=== PATIENT | female | born 1980 | race Caucasian/White ===

== ENCOUNTER 2022-12-20 14:05 | Emergency (ER) | payer OTHER, SELFPAY ==
[2022-12-20 14:17] VITALS: BP 163/83; PULSE 103; RESP 16; TEMP 36.8; O2SAT 100
[2022-12-20] MEDS: DEXAMETHASONE 2 MG TABLET 10 MG PO (15:15)
[2022-12-20] MEDS: METOCLOPRAMIDE HCL INJ 10 MG/2 ML VIAL IM (15:19)
[2022-12-20] MEDS: diphenhydrAMINE HCl CAP 25 MG CAPSULE PO (15:19)
--- NOTE | 2022-12-20 16:16 | ED.HA ---
HPI - Headache General Chief Complaint: Headache Stated Complaint: sinus migraine x 3 days Time Seen by Provider: 12/20/22 15:05 History of Present Illness HPI Narrative: Patient with history of sinusitis already on Flonase and Zyrtec presents here with sinus migraine, she has had this in the past, has been ongoing for a few days, slow in onset, with some photophobia, no focal numbness or weakness. Related Data Home Medications Medication Instructions Recorded Confirmed Lasix 12/29/18 12/29/18 Pepcid AC 12/29/18 Wellbutrin 12/29/18 clonidine DAILY 12/29/18 sertraline 50 mg tablet (Zoloft) 50 mg PO DAILY 12/29/18 12/29/18 Allergies Allergy/AdvReac Type Severity Reaction Status Date / Time No Known Allergies Allergy Unknown Verified 12/20/22 15:09 Review of Systems Review of Systems: CONST: No fever. HEENT: Sinusitis C/V: No chest pain RESP: No cough GI: Nausea and vomiting : No dysuria. M/S: No joint pain. SKIN: No rash. NEURO: Headache PSYCH: [No depression] Exam Narrative: EXAMINATION OF ORGAN SYSTEMS/BODY AREAS: Constitutional: Vital signs per nursing GENERAL: Appears slightly uncomfortable HEAD: Normal with no signs of head trauma. EYES: EOMI, conjunctiva normal ENT: Slight tenderness to R frontal sinus LUNGS: Nonlabored breathing. HEART: [Regular rate and rhythm] ABD: [Soft], [nontender to palpation] EXT: Normal range of motion SKIN: [No rashes or lesions.] NEURO: [Alert and oriented x 3. No gross focal sensory or strength deficits.] Ambulating with normal gait, no facial asymmetry. PSYCH: Normal affect Course Vital Signs Vital signs: Vital Signs Temperature 98.2 F 12/20/22 14:17 Pulse Rate 103 H 12/20/22 14:17 Respiratory Rate 16 12/20/22 14:17 Blood Pressure 163/83 H 12/20/22 14:17 Pulse Oximetry 100 12/20/22 14:17 Oxygen Delivery Room Air 12/20/22 14:17 Temperature 98.2 F 12/20/22 14:17 Pulse Rate 103 H 12/20/22 14:17 Respiratory Rate 16 12/20/22 14:17 Blood Pressure 163/83 H 12/20/22 14:17 Pulse Oximetry 100 12/20/22 14:17 Oxygen Delivery Room Air 12/20/22 14:17 MDM - Headache MDM Narrative Medical decision making narrative: 42-year-old female presents to the emergency department for sinus headache. Patient is hemodynamically stable. No focal neurological or cranial nerve deficits on exam. No meningeal signs. The headache was gradual in onset, it is not exertional and does not appear consistent with subarachnoid hemorrhage or intracranial bleeding. No trauma. Patient is given headache cocktail including Reglan, Benadryl, Toradol. On reevaluation, the patient feels slightly better; she still has a headache but her nausea is gone, I did offer further interventions she declined at this time. No neurological deficits. Patient is comfortable going home for outpatient follow-up with primary care physician and/or neurology and provided with strict return precautions, especially for worsening headaches, neck pain/stiffness, fever or weakness, numbness/tingling or persistent vomiting. I did provide ENT follow-up, she is already on Flonase and Augmentin, given the extent of her symptoms I will start her on antibiotics Discharge Plan Discharge Clinical Impression: Sinusitis, Migraine Patient Disposition: Home, Self-Care Condition: Improved Instructions: Antibiotic Form, Sinusitis (ED), Acute Headache (ED) Additional Instructions: Please follow up with your doctor and with ENT; you can always return for any further issues. Prescriptions: New amoxicillin-pot clavulanate 875-125 mg tablet 1 tablet PO Q12H Qty: 10 0RF ondansetron 4 mg tablet,disintegrating 4 mg PO Q8H PRN (Reason: nausea and vomiting) Qty: 10 0RF No Action Wellbutrin 300 MG tablet Pepcid AC Lasix 10 MG tablet clonidine 0.1 MG tablet DAILY sertraline [Zoloft] 50 mg Tablet 50 mg PO DA
[2022-12-20] MEDS: KETOROLAC 30 MG/ML VIAL (*BKC) IM (16:21)
== END 2022-12-20 16:47 | disposition home or self-care (01) ==
PROVIDERS: Emergency Provider Emergency Medicine; PCP Nurse Practitioner
DX: G43.909 Migraine, unspecified, not intractable, without status migrainosus (principal); J32.9 Chronic sinusitis, unspecified
CPT/HCPCS: 96372; 99284; A9270; J1885; J2765; J8540

== ENCOUNTER 2024-06-03 10:55 | Emergency (ER) | payer BC, SELFPAY ==
--- NOTE | ~2024-06-03 | XR_ITS ---
CHEST RADIOGRAPH CLINICAL HISTORY: Shortness of breath . COMPARISON: 10/09/2017 TECHNIQUE: Single portable view of the chest. FINDINGS The cardiomediastinal silhouette is unremarkable. The lungs are clear. Visualized osseous structures and soft tissues are unremarkable. IMPRESSION: No focal infiltrate or effusion. Reviewed, dictated and finalized at location A.
[2024-06-03 11:07] VITALS: BP 153/101; PULSE 83; RESP 18; TEMP 36.4; O2SAT 99
--- NOTE | 2024-06-03 11:40 | ED.ASTHMA ---
HPI - Asthma General Chief Complaint: Asthma Stated Complaint: ?asthma attack Time Seen by Provider: 06/03/24 11:19 Source: patient and family Mode of arrival: ambulatory Limitations: no limitations History of Present Illness HPI Narrative: 43 years old white female with history of hypertension, asthma. Does not smoke or drink or use drugs. Came to the ED with an episodes of hot flashes, feeling like going to pass out, restlessness, jittery feeling inside, shaking outside, trouble breathing, lightheadedness with shortness of breath started yesterday at work lasted for maximum 20 minutes then resolved. Patient reports a lot of stress lately. Currently patient is asymptomatic except slight headache and feeling off. Currently patient denies any fever, chills, nausea, vomiting, chest pain, shortness of breath. Related Data Home Medications ?Medication ?Instructions ?Recorded ?Confirmed ?Last Taken ?Type Lasix 12/29/18 12/29/18 Unknown History Pepcid AC 12/29/18 Unknown History Wellbutrin 12/29/18 Unknown History clonidine DAILY 12/29/18 Unknown History sertraline 50 mg tablet (Zoloft) 50 mg PO DAILY 12/29/18 12/29/18 Unknown History Allergies Allergy/AdvReac Type Severity Reaction Status Date / Time No Known Allergies Allergy Unknown Verified 06/03/24 10:56 Review of Systems Review of Systems: All systems reviewed & are unremarkable except as noted in HPI and below Exam Narrative: General appearance: Well-developed, well-nourished, anxious, restless Skin: Normal color Head: Normocephalic, nontraumatic Eyes: Clear conjunctiva ENT: Oropharynx normal, ears normal, nose normal Neck: Supple, nontender Chest and respiratory: Airway patent, no respiratory distress, no accessory muscle use Heart: Regular rate/rhythm Abdomen: Soft, nontender, no organomegaly, quiet bowel sounds Vascular: Normal peripheral pulses, normal capillary refill. Musculoskeletal: Normal range of motion, nontender back Neurologic: Alert and oriented ?3, [employer] is normal as tested, no gross motor deficit Course Vital Signs Vital signs: Vital Signs Temperature 36.4 C 06/03/24 11:07 Pulse Rate 83 06/03/24 11:07 Respiratory Rate 18 06/03/24 11:07 Blood Pressure 153/101 H 06/03/24 11:07 Pulse Oximetry 99 06/03/24 11:07 Oxygen Delivery Room Air 06/03/24 11:07 Temperature 36.4 C 06/03/24 11:07 Pulse Rate 74 06/03/24 11:41 Respiratory Rate 17 06/03/24 11:41 Blood Pressure 154/100 H 06/03/24 11:41 Pulse Oximetry 100 06/03/24 12:44 Oxygen Delivery Room Air 06/03/24 12:44 MDM - Asthma MDM Narrative Medical decision making narrative: Patient presents with anxiety like symptoms Vital signs showing blood pressure 153/101 otherwise within normal limit Physical examination showing restless, anxious patient otherwise insignificant Differential diagnosis include anxiety like symptoms, urinary tract infection, dehydration, electrolyte imbalance Blood workup today includes CBC, CMP, TSH showed insignificant abnormalities Urinalysis showed EVIDENCE OF INFECTION Chest x-ray showed WITHIN NORMAL LIMIT EKG SHOWED NORMAL SINUS RHYTHM URINE DRUG SCREEN POSITIVE FOR MARIJUANA PATIENT TESTED POSITIVE FOR DIAGNOSIS , ANXIETY LIKE SYMPTOMS, MARIJUANA USE, URINARY TRACT INFECTION DISCHARGED ON AMOXICILLIN, FOLLOW-UP WITH OBGYN. THE PT WAS DISCHARGED TO HOME.THE PT,S CONDITION UPON DISCHARGE WAS FAIR,EDUCATION WAS PROVIDED TO THE PT IN REFERENCE TO THE FINAL IMPRESSION,DISCHARGE STUDY RESULTS,TREATMENT,PROGNOSIS AND NEED FOR FOLLOW UP . Differential Diagnosis Differential diagnosis: Likely other (As above) Medical Records Attestation: I reviewed the patient's medical records. Lab Data Attestation: I reviewed the patient's lab results. 06/03/24 12:31 06/03/24 12:31 Labs: Lab Results 06/03/24 06/03/24 06/03/24 Range/Units 12:24 12:28 12:31 WBC 4.5 (4.5-10.0) K/mm3 RBC 4.53 (4.2-5.4) M/mm3 Hgb 13.2 (12.0-15.0) g/dL Hct 41.9 (37.0-47.0) % MCV 92.5 (80-100) fl MCH 29.1 (26-34) pg MCHC 31.5 L (32-36) g/dl RDW 12.5 (11.5-14.5) % Plt Count 225 (150-375) k/mm3 MPV 10.3 (7.4-10.4) fl Immature Gran % (Auto) 0.2 (0-0.5) % Neut % (Auto) 45.7 (45.5-73.1) % Lymph % (Auto) 39.1 (18.3-44.2) % [place] % (Auto) 9.2 H (2.6-8.5) % Eos % (Auto) 4.9 H (0-4.4) % Baso % (Auto) 0.9 (0.2-1.2) % Lymph # (Auto) 1.75 (0.9-3.2) K/mm3 [place] # (Auto) 0.4 (0.1-0.6) K/mm3 Eos # (Auto) 0.2 (0-0.3) K/mm3 Baso # (Auto) 0.0 (0.0-0.1) K/mm3 Abs Immat Gran (auto) 0.01 (0.00-0.031) K/mm3 Absolute Neuts (auto) 2.0 (1.3-6.7) K/mm3 Absolute Nucleated RBC 0.000 (0.0-0.012) K/mm3 Nucleated RBC % 0.0 (0.0-0.2) % Sodium 140 (137-145) mmol/L Potassium 3.8 (3.4-5.0) mmol/L Chloride 105 (98-107) mmol/L Carbon Dioxide 22 (22-30) mmol/L Anion Gap 13 H (4-12) mmol/L BUN 18 H (7-17) mg/dL Creatinine 1.06 H (0.7-1.0) mg/dL Estim Creat Clear Calc 60 ml/min Estimated GFR 57 L (59 - ) Glucose 119 H (65-110) mg/dL Calcium 9.1 (8.4-10.2) mg/dL Total Bilirubin 0.7 (0.2-1.3) mg/dL AST 26 (14-36) U/L ALT 20 (6-35) U/L Alkaline Phosphatase 77 (38-126) U/L Troponin I Cancelled Total Protein (6.3-8.2) g/dL Albumin (3.5-5.1) g/dL TSH (0.465-4.680) uIU/mL Beta HCG, Quant mIU/ML Urine Color Yellow (Yellow) Urine Appearance Clear (Clear) Urine pH 5.5 (5.0-9.0) Ur Specific [place] 1.007 (1.001-1.035) Urine Protein Negative (Negative) mg/dL Urine Glucose (UA) Negative (Negative) mg/dL Urine Ketones Negative (Negative) mg/dL Ur Blood (Man) Negative (Negative) Urine Nitrate Negative (Negative) Urine Bilirubin Negative (Negative) Urine Urobilinogen 0.2 (<2.0) mg/dL Leukocyte Esterase Rfl 2+ H (Negative) SEGUN/UL Urine RBC 0-2 (0-2) /hpf Urine WBC 11-20 H (0-3) /hpf Ur Squamous Epith Cells None seen (Few) /hpf Urine Bacteria None seen /hpf Urine Casts 0-2 POC Urine HCG, Qual Positive (Negative) Urine Opiates Screen Negative (Negative) Urine Methadone Screen Negative (Negative) Ur Barbiturates Screen Negative (Negative) Ur Phencyclidine Scrn Negative (Negative) Ur Amphetamine Screen Negative (Negative) U Benzodiazepines Scrn Negative (Negative) Urine Cocaine Screen Negative (Negative) U Cannabinoids Screen Positive A (Negative) 06/03/24 Range/Units 12:31 WBC (4.5-10.0) K/mm3 RBC (4.2-5.4) M/mm3 Hgb (12.0-15.0) g/dL Hct (37.0-47.0) % MCV (80-100) fl MCH (26-34) pg MCHC (32-36) g/dl RDW (11.5-14.5) % Plt Count (150-375) k/mm3 MPV (7.4-10.4) fl Immature Gran % (Auto) (0-0.5) % Neut % (Auto) (45.5-73.1) % Lymph % (Auto) (18.3-44.2) % [place] % (Auto) (2.6-8.5) % Eos % (Auto) (0-4.4) % Baso % (Auto) (0.2-1.2) % Lymph # (Auto) (0.9-3.2) K/mm3 [place] # (Auto) (0.1-0.6) K/mm3 Eos # (Auto) (0-0.3) K/mm3 Baso # (Auto) (0.0-0.1) K/mm3 Abs Immat Gran (auto) (0.00-0.031) K/mm3 Absolute Neuts (auto) (1.3-6.7) K/mm3 Absolute Nucleated RBC (0.0-0.012) K/mm3 Nucleated RBC % (0.0-0.2) % Sodium (137-145) mmol/L Potassium (3.4-5.0) mmol/L Chloride (98-107) mmol/L Carbon Dioxide (22-30) mmol/L Anion Gap (4-12) mmol/L BUN (7-17) mg/dL Creatinine (0.7-1.0) mg/dL Estim Creat Clear Calc ml/min Estimated GFR (59 - ) Glucose (65-110) mg/dL Calcium (8.4-10.2) mg/dL Total Bilirubin (0.2-1.3) mg/dL AST (14-36) U/L ALT (6-35) U/L Alkaline Phosphatase (38-126) U/L Troponin I < 0.012 Total Protein 8.0 (6.3-8.2) g/dL Albumin 4.7 (3.5-5.1) g/dL TSH 0.713 (0.465-4.680) uIU/mL Beta HCG, Quant 6.41 mIU/ML Urine Color (Yellow) Urine Appearance (Clear) Urine pH (5.0-9.0) Ur Specific [place] (1.001-1.035) Urine Protein (Negative) mg/dL Urine Glucose (UA) (Negative) mg/dL Urine Ketones (Negative) mg/dL Ur Blood (Man) (Negative) Urine Nitrate (Negative) Urine Bilirubin (Negative) Urine Urobilinogen (<2.0) mg/dL Leukocyte Esterase Rfl (Negative) SEGUN/UL Urine RBC (0-2) /hpf Urine WBC (0-3) /hpf Ur Squamous Epith Cells (Few) /hpf Urine Bacteria /hpf Urine Casts POC Urine HCG, Qual (Negative) Urine Opiates Screen (Negative) Urine Methadone Screen (Negative) Ur Barbiturates Screen (Negative) Ur Phencyclidine Scrn (Negative) Ur Amphetamine Screen (Negative) U Benzodiazepines Scrn (Negative) Urine Cocaine Screen (Negative) U Cannabinoids Screen (Negative) Imaging Data Radiologist's impression: Impressions Chest X-Ray 06/03/24 13:15 IMPRESSION: No focal infiltrate or effusion. ECG Data EKG #1: Attestation: I personally reviewed and interpreted this ECG as follows: ECG completion date: 06/03/24 ECG completion time: 13:35 Interpretation: NORMAL SINUS RHYTHM AT 61 BEATS PER MINUTE, BORDERLINE ST T-WAVE ABNORMALITY, BORDERLINE EKG, NO PREVIOUS EKG AVAILABLE FOR COMPARISON Critical Care Time Critical Care Time Critical Care Time: No Discharge Plan Discharge Clinical Impression: , Anxiety-like symptoms, Urinary tract infection Patient Disposition: Home Condition: Stable Instructions: Antibiotic Form, (ED), Urinary Tract Infection in Women (ED) Additional Instructions: RETURN IF SYMPTOMS ARE WORSENING , CALL YOUR FAMILY PHYSICIAN FOR APPOINTMENT, TAKE TYLENOL NEEDED FOR ACHES AND PAIN, CONTINUE HOME MEDICATIONS. Patient Language: Thai Prescriptions: New amoxicillin 875 mg tablet 875 mg PO Q12H Qty: 20 0RF No Action Wellbutrin 300 MG tablet Pepcid AC Lasix 10 MG tablet clonidine 0.1 MG tablet DAILY sertraline [Zoloft] 50 mg Tablet 50 mg PO DAILY prednisone 50 mg tablet 50 mg PO DAILY Qty: 5 0RF fluticasone propionate 50 mcg/actuation spray,suspension 2 spray NASAL DAILY PRN (Reason: nasal congestion) Qty: 15.8 0RF Rx Instructions: administer into each nostril amoxicillin-pot clavulanate 875-125 mg tablet 1 tablet PO Q12H Qty: 10 0RF ondansetron 4 mg tablet,disintegrating 4 mg PO Q8H PRN (Reason: nausea and vomiting) Qty: 10 0RF Follow-up/Referrals: Matteo Bartlett MD [Primary Care Provider] -
[2024-06-03 11:41] VITALS: BP 154/100; PULSE 74; RESP 17; O2SAT 100
--- NOTE | 2024-06-03 12:08 | ECG_ITS ---
Test Date: 2024-06-03 12:42:19 Measurements Intervals [place] Rate: 61 P: 26 RI: 153 QRS: 39 QRSD: 102 T: 139 QT: 426 QTc: 432 Interpretive Statements SINUS RHYTHM BORDERLINE ST-T WAVE ABNORMALITY- DIFFUSE LEADS BASELINE ARTIFACT- I, II, AVR, V1-V2 BORDERLINE ECG No previous ECG available for comparison Electronically Signed On 06-03-2024 13:34:44 CDT by Deepak Meeks D.O.
[2024-06-03] MEDS: LORazepam (*CRX) 1 MG TABLET PO (12:24)
[2024-06-03 12:31] LABS: BEDSIDEPREGUCG Positive (Negative)
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
--- OUTSIDE RECORDS SUMMARY | 2024-06-03 12:34 | XMS_ITS | Clinical Summary ---
Author Organization [facility] Address [address] [place] [id number] Care Team Providers Care Boiler Testing Technician Name Role Phone Karin Bird RN Unavailable Unavailable Vera Corrales DO Primary Care Provider [phone] Source Comments [facility],non-owned Affiliates and Associated Physician Practices is amultiple site organization consisting of ambulatory clinics and hospital sitesin [place], [place], [place] and [place]. This disclosure is being madepursuant to the Care Everywhere program and may not contain all information available regarding this patient. Last updated 17.[facility] Allergies No known active allergies Medications * Be aware that medications may not be up to date on this document. Alwaysverify current medications with the patient. Medication Sig Dispensed Refills Start Date End Date Status aspirin (ASPIRIN) 81 MG chew tablet Take 1 tablet by mouth once daily 30 tablet 06/23/2017 Active sertraline (ZOLOFT) 50 MG tablet Take 1 tablet by mouth once daily 30 tablet 06/23/2017 Active traZODone (DESYREL) 100 MG tablet Take 1 tablet by mouth at bedtime 30 tablet 07/31/2018 Active cloNIDine (CATAPRES) 0.1 MG tablet Take 1 tablet by mouth 2 times daily 60 tablet 07/31/2018 Active carvedilol (COREG) 12.5 MG tablet Take 1 tablet by mouth 2 times daily with morning and evening meal 60 tablet 07/31/2018 Active famotidine (PEPCID) 20 MG tablet Take 1 tablet by mouth once daily 30 tablet 07/31/2018 Active Active Problems Patient Care Coordination No te Formatting of this note migh t be different from the original. All labs from Dr Stubbs are out of date from prior . Need new labs and GCT at next appt. 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 Supratherapeutic INR 06/20/2017 Amphetamine-induced psychotic disorder 8 Hallucinations 05/29/2017 Hypokalemia 05/29/2017 Paranoia 05/29/2017 Aggression 05/29/2017 Chest pain 05/29/2017 LV (left ventricular) mural thrombus without NM 05/27/2017 Cerebrovascular accident (CV A) due to thrombosis of precerebral artery 05/27/2017 Swelling of limb 05/03/2017 SOB (shortness of breath) 05/03/2017 Elevated troponin 05/03/2017 Bilateral leg edema 05/03/2017 Hypertensive urgency 05/03/2017 Acute intractable headache 05/03/2017 Acute exacerbation of CHF (congestive heart fail ure) 09/18/2014 NSTEMI (non-ST elevated myocardial infarction) 0 09/18/2014 Bronchitis, acute 09/18/2014 Breast nodule 09/18/2014 CHF (congestive heart failure) 11/11/2012 Overview (11/11/2012): Echocardiogram from admission to [facility] in February shows severe LV dysfunction with an ejection fraction 28-32%. Dilated left atrium, mitral valve thickening, aortic valve thickening. She was started on Lasix and lisinopril and ASA at that time. H/O gestational diabetes in prior , currently 10/29/2012 H/O: stroke 10/29/2012 Overview (11/11/2012): March 08, 2012, while on ortho-evra patch Patient presented for right sided arm and leg weakness, mental status changes on 03/08/12. The MRI showed multiple multifocal acute cardiovascular accidents . MARVIN showed no evidence of thrombus or PFO. LE dopplers were negative. The likely cause was determined to be vasoconstriction due to amphetamine usage. The patient denied all drug usage although did admit to Sudafed. She was discharged on Plavix. Tubal ligation evaluation 10/29/2012 Overview (10/29/2012): Desires tubal If desires CS, wants tubal during CS History of Cervical insufficiency in , antepartum 10/28/2012 Overview (10/29/2012): Cerclage in G5 and G7 History of pre-eclampsia in prior , currently 10/28/2012 Overview (10/29/2012): In G9, not induced. Received magnesium prior to delivery and afterwards Tobacco abuse in 10/28/2012 Supervision of high-risk with grand mu ltiparity 10/20/2012 Overview (10/28/2012): BEVERLY from Dr. Stubbs for PTL/cervical insufficiency, h/o preeclampsia, PTD PNL drawn but results not included in fax from Dr. Stubbs Request records History of gestational diabetes mellitus 013 Resolved Problems Problem Noted Date Diagnosed Date Resolved Date Hypertension 12/26/2010 10/20/2012 GDM (gestational diabetes mellitus) 12/26/2010 09/26/2012 Overview (12/26/2010): GCT 163 before receiving steroids Supervision of high-risk 12/25/2010 10/20/2012 Overview (12/25/2010): History of recurrent 2nd trimester losses Hx of preeclampsia, prior pr egnancy, currently 12/25/2010 10/20/2012 Overview (12/25/2010): In G7, not induced. Received magnesium prior to delivery and afterwards care insufficient 12/25/2010 0 09/26/2012 Overview (12/25/2010): No visits. Presented to hospital at 34 weeks gestation after having high blood pressure in the [facility] office. States her insurance wouldn't go through so she couldn't see a doctor history of Cervical insuffic iency in , antepartum 12/25/2010 10/20/2012 Overview (12/25/2010): cerclage x2 in G6 and 7 Immunizations Name Administration Dates Next Due INFLUENZA VACCINE, QUADR. (F LUZONE; FLULAVAL; FLUARIX; AFLURIA QUADRIVALENT; 6MO+), 0.5 ML (IIV4) 11/17/2016 Family History Medical History Relation Name Comments Depression Father Drug Abuse Father Heart Failure Maternal Grandmother Hypertension Maternal Grandmother Stroke Maternal Grandmother Alcohol abuse Sister 1 Depression Sister 1 Drug Abuse Sister 1 Alcohol abuse Sister 2 Drug Abuse Sister 2 Relation Name Status Comments Father Maternal Grandmother Sister 1 Sister 2 Social History Tobacco Use Types Packs/Day Years Used Date Smoking Tobacco: Former Cigarettes 0.5 15 0 07/23/2003 - 07/22/2018 Smokeless Tobacco: Never Tobacco Cessation:Counseling Given: Yes Comments:quit 6 days ago July 24, 2018 Alcohol Use Standard Drinks/Week Comments No 0 (1 standard drink = 0.6 oz pur e alcohol) Sex and Gender Information Value Date Recorded Sex Assigned at Not on file Gender Identity Female 10/08/2017 4:05 PM CDT Sexual Orientation Not on file Last Filed Vital Signs Vital Sign Reading Time Taken Comments Blood Pressure 119/81 07/31/2018 12:46 PM CDT Pulse 66 07/31/2018 12:46 PM CDT Temperature 36.6 C (97.8 F) 07/31/2018 8:20 AM CDT 97.8 Respiratory Rate 16 07/31/2018 8:20 AM CDT Oxygen Saturation 98% 07/31/2018 12: 46 PM CDT Inhaled Oxygen Concentration - - Weight 108.6 kg (239 lb 6.4 oz) 07/29/2018 4:22 AM CDT Height 160 cm (5' 3 ) 07/29/2018 4:22 AM CDT Body Mass Index 42.41 07/29/2018 4:22 AM CDT Plan of Treatment Health Maintenance Due Date Last Done Comments MAMMOGRAM 1980 PAP SMEAR 1980 DTAP/TDAP/TD VACCINES (1 - Tdap) 11/23/1999 HEPATITIS B VACCINE (1 of 3 - 19+ 3-dose series) 11/23/1999 LIPID TESTING 05/06/2022 05/06/2017, 10/27, 09/19/2014, Additional history exists COVID-19 VACCINE (2023- season) 2023 DEPRESSION SCREENING 02/26/2024 INFLUENZA VACCINE (Season Ended) 2024 11/17/2016 ZOSTER VACCINE (1 of 2) 2030 HIV SCREENING Completed 01/08/2013, 12/25/2010 HEPATITIS C SCREENING Completed 11/16/2016 HIB VACCINE Aged Out No longer eligi ble based on patient's age to complete this topic HPV VACCINE Aged Out No longer eligi ble based on patient's age to complete this topic MENINGOCOCCAL (Group B) VACCINE SHARED DECISION-MAKING Aged Out No longer eligible based on patient's age to complete this topic MENINGOCOCCAL GROUPS A/C/Y/W VACCINE Aged Out No longer eligible based on patient's age to complete this topic PNEUMOCOCCAL VACCINE Aged Out No long er eligible based on patient's age to complete this topic Procedures Procedure Name Priority Date/Time Associated Diagnosis Comments LIPID PROFILE AM Draw 05/06/2017 4:20 AM CDT HEPATITIS SCREEN ACUTE Routine 11/16/2016 10:18 AM CDT HIV-1 HIV-2 ANTIBODY Add on 01/08/2013 3:50 PM BRYOLOGIST from Last 3 Months or Most Recently Relevant to Health Maintenance Results * (ABNORMAL) LIPID PROFILE (05/06/2017 4:20 AM CDT) Cholesterol 76 <200 mg/dL 05/06/2017 5:41 AM CDT [facility] Triglycerides 74 <150 mg/dL 05/06/2017 5:41 AM CDT [facility] HDL Cholesterol 21(L) >40 mg/dL 8 5:41 AM CDT [facility] LDL Calculated 40 <130 mg/dL 05/06/2017 5:41 AM CDT [facility] VLDL Calculated 15 <=30 mg/dL 8 5:41 AM CDT [facility] Chol HDL Ratio 3.6 <4.5 05/06/2017 5:41 AM CDT [facility] LDL/HDL Ratio 1.9 <5.0 05/06/2017 5:41 AM CDT [facility] Blood BLOOD SPECIMEN / Unknown Venipuncture / Unknown 05/06/2017 4:20 AM CDT 05/06/2017 5:02 AM CDT Naveen Kearns MD LAB - CHEMISTRY [facility] [address] [place] [address] * HEPATITIS SCREEN ACUTE (11/16/2016 10:18 AM CDT) Pathologist [facility] HAV Antibody IgM Non Reactive Non Reactive 11/16/2016 3:03 PM CDT [facility] HBsAg Non Reactive Non Reactive 11/16/2016 3:03 PM CDT [facility] HBc Antibody IgM Non Reactive Non Reactive 11/16/2016 3:03 PM CDT [facility] HCV Antibody Screen Non Reactive Non Reactive 11/16/2016 3:03 PM CDT [facility] HCV S/C Ratio 0.16 0.00 - 0.79 11/16/2016 3:03 PM CDT [facility] Comment: Qvqeis-ov-wxzjoz ratio (S/CO) <0.80: Non Reactive Blood BLOOD SPECIMEN / Unknown Venipuncture / Unknown 11/16/2016 10:18 AM CDT 11/16/2016 10:26 AM CDT Narrative [facility] - 11/16/2016 3:03 PM CDT Non Reactive - Antibodies to Hepatitis C virus (HCV) were not detected, result does not exclude early acute HCV infection. Non Reactive - Antibodies to Hepatitis C virus (HCV) were not detected, result does not exclude early acute HCV infection. Cuba Vaca MD LAB - CHEMISTRY [facility] Performing Organization Address City/[facility]/ZIP Co de Phone Number [facility] [address] [place] [address] * HIV-1 HIV-2 ANTIBODY (01/08/2013 3:50 PM BRYOLOGIST) Pathologist [facility] HIV-1/HIV-2 Non Reactive Non Reactive 3 1:56 PM BRYOLOGIST [facility] Blood BLOOD SPECIMEN / Unknown 01/08/2013 3:50 PM BRYOLOGIST 01/09/2013 12:38 PM BRYOLOGIST Lillie Roland MD LAB - CHEMISTRY O RDERABLES [facility] [address] [place] [address] from Last 3 Months or Most Recently Relevant to Health Maintenance Advance Directives * Full Code (Latest Code Status on File) Date Activated Date Inactivated Comments 07/29/2018 3:05 AM 07/31/2018 2:40 PM * Full Code Date Activated Date Inactivated Comments 08/08/2017 12:39 PM 08/08/2017 4:48 PM * Full Code Date Activated Date Inactivated Comments 06/20/2017 2:53 AM 06/23/2017 3:36 PM * Full Code Date Activated Date Inactivated Comments 05/29/2017 10:15 PM 05/31/2017 1:48 PM * Full Code Date Activated Date Inactivated Comments 05/29/2017 10:13 PM 05/29/2017 10:15 PM Care Teams Boiler Testing Technician Relationship Specialty Start Date End Date Vera Corrales DO [address] [place] [address] [place] [address] PCP - General 08/11/18 Karin Bird RN Registered Nurse 11/16/16
--- OUTSIDE RECORDS SUMMARY | 2024-06-03 12:34 | XMS_ITS ---
Author Organization [facility] Address [address] [place] [address] Care Team Providers Care Health Physicist Name Role Phone Matteo Bartlett Primary Care Provider [phone] [place] [phone] Social History Sex Assigned At : Social History Observation Description Sex Assigned At Female Encounters Encounter Location Date Provider Diagnosis [address] [place] [address] 06/03/2024 Matteo Bartlett Plan Of Treatment No Information Progress Notes * ITZELNancy Mueller LDOB: 1 (43 yo F)Acc No.[id number]:06/03/2024 UNLOCKED PROGRESS NOTE Patient: Nancy EVERETT :1980 A ge:43 Y S ex:Female Address:[facility] [address], [place], * * Date:
--- OUTSIDE RECORDS SUMMARY | 2024-06-03 12:34 | XMS_ITS | Encounter Summary ---
Author Organization [facility] Address [address] [place] [id number] Care Team Providers Care Rail Car Repair Carman Name Role Phone Delroy Chandler MD Primary Care Provider [phone] None, Provider Primary Care Provider Unavaila ble Encounter Details Date Type Department Care Team (Late st Contact Info) Description 12/29/2016 [place] [address] , Generic ConversionMD Social History Tobacco Use Types Packs/Day Years Used Date Smoking Tobacco: Never Assessed Comments Unknown Sex and Gender Information Value Date Recorded Sex Assigned at Not on file Legal Sex Female 5:00 PM CDT Gender Identity Not on file Sexual Orientation Not on file documented as of this encounter Plan of Treatment Not on file documented as of this encounter Visit Diagnoses Not on filedocumented in this encounter Care Teams Rail Car Repair Carman Relationship Specialty Start Date End Date Delroy Chandler MD PCP - General 03/08/12 03/14/19 None, ProviderMD PCP - General 03/15/19 documented as of this encounter
--- OUTSIDE RECORDS SUMMARY | 2024-06-03 12:34 | XMS_ITS ---
Author Organization [facility] Address [address] [place] [address] Care Team Providers Care Telecine Operator Name Role Phone Matteo Bartlett Primary Care Provider [phone] [place] Unavailable [phone] Allergies No Known Allergies REASON FOR VISIT 3 Month Psych F/U & Med Refill Medications Medication SIG (Take, Route, Frequency, Duration) Notes Start Date End Date Status Famotidine 40 MG TAKE 1 TABLET BY ADRI EVERY DAY AT BEDTIME for 90 days Active Mupirocin 2 % 1 application to bot h nostrils Externally Twice a day for 5 days 12/13/2023 Active Mirtazapine 45 MG 1 tablet at bedtime Orally Once a day for 90 days Active Topamax 100 MG 1 tablet Orally Twic e a day for 90 days Active cloNIDine HCl 0.2 MG 2 tablets at bedtim e Orally Once a day for 90 days Active cloNIDine HCl 0.1 1 tablet Orally Once a day for 30 Not-Taking Lisinopril 20 MG TAKE 1 TABLET BY ADRI EVERY DAY for 90 days Active Fluticasone Propionate 50 MCG/DOSE 1 spray in each nostril Nasally Once a day Active Carvedilol 12.5 MG as directed Orally t wice a day 06/27/2018 Not-Taking Atomoxetine HCl 25 MG 1 capsule in the m orning Orally once a day for 7 days 04/27/2024 Active Albuterol Sulfate HFA 108 (90 Base) MCG/ACT INHALE 2 PUFFS BY MOUTH EVERY 6 HOURS NEEDED for 25 Active Sudafed PE Sinus/Allergy OTC Active Ventolin HFA 90 MCG/ACT 2 puffs as neede d Inhalation every 6 hrs for 30 days Active Social History Tobacco Use: Social History Observation Description Date Details (start date - stop date) Never Smoker NA - NA Sex Assigned At : Social History Observation Description Sex Assigned At Female Tobacco Control (Standard) Question Answer Notes Tobacco [...] Psych inpt: none under care of psychiatrist: lissa only Vital Signs Weight 177.8 lbs 04/27/2024 Height 63 in 04/27/2024 BMI 31.49 kg/m2 04/27/2024 Blood pressure systolic 138 mm Hg 04/28/19 25 Blood pressure diastolic 84 mm Hg 025 Heart Rate 73 /min 04/27/2024 Oximetry 92 % 04/27/2024 Respiratory Rate 16 /min 04/27/2024 Encounters Encounter Location Date Provider Diagnosis [address] [address] 04/27/2024 [place] Bynum Depression F32.9 ; P TSD (post-traumatic stress disorder) F43.10 ; 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 04/27/2024 ADHD (attention deficit hyperactivity disorder) (ICD-10 - F90.9) 04/27/2024 Nutritional counseling (ICD-10 - Z71.3) Plan Of Treatment Medication Medication Name Sig Start Date Stop Date Notes Mirtazapine 45 MG 1 tablet at bedtime Orally Once a day for 90 days Topamax 100 MG 1 tablet Orally Twic e a day for 90 days cloNIDine HCl 0.2 MG 2 tablets at bedtim e Orally Once a day for 90 days Atomoxetine HCl 25 MG 1 capsule in the m orning Orally once a day for 7 days 04/27/2024 Treatment Notes Assessment Notes Amphetamine abuse in remission 7 years s shruthi. 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 She is having trouble switching gears and feels she is slower than she should be my ADD is all over the place. Ward about Vyvclarie and wonders is this would be good for her. Using clonidine. Now 7 years sober from amphetamine abuse and does not want to use a stimulant. Continues to parent three teens whose fathers are difficult to engage with. . Effectiveness of medications: S omewhat effective--only using clonidine 0.1 ER at [facility]. . Medication Adherence: R eports taking medications as prescribed. Sleep: A ppropriate sleep. Appetite t opamax is helpful for increased appetite with mirtazepine. Highly attached to mirtazepine. Depression (10 = most depressed) 0 /10 denies depression.? Anxiety (10 = most anxious) d enies. Anger/Irritability (10 is highest): d enies any altercations. Suicidal ideation: D enies suicidal ideation.. Homicidal ideation: D enies homicidal ideation.. Hallucinations D enies hallucinations. Medical concerns or hospitalizations? H [place] controlled with meds. . Therapy? N o. S creening: [place] Suicide Severity Rating Scale (LF) D o you want to initiate with S creener form 1 . Wish to be : Have you wished you were or wished you could go to sleep and not wake up? N o 2 . Suicidal Thoughts: Have you actually had any thoughts of killing yourself? N o 6 . Suicide Behavior Question: Have you ever done anything,started to do anything, or prepared to end your life? N o I nterpretation: L ow Risk P reventative Health and Wellness follow-up: ....... C SSRS Interpretation and Follow Up Plan: CSSRS Interpretation and Follow Up Plan C SSRS Screen documented using SF Y es R isk Disposition from L ow - No Follow Up Plan Required F ollow Up Plan N o Follow Up Plan required at this time. I nterim History: Emergency room visit N o. Was hospitalized N o. D epression Screening: PHQ-9 L ittle interest or pleasure in doing things?Not at all F eeling down, depressed, or hopeless N ot at all T rouble falling or staying asleep, or sleeping too much N ot at all F eeling tired or having little energy N ot at all P oor appetite or overeating N ot at all F eeling bad about yourself or that you are a failure, or have let yourself or your family down N ot at all T rouble concentrating on things, such as reading the newspaper or watching television S everal days M oving or speaking so slowly that other people could have noticed; or the opposite, being so fidgety or restless that you have been moving around a lot more than usual N ot at all T houghts that you would be better off or of hurting yourself in some way N ot at all T otal Score 1 I nterpretation M inimal Depression * ROS: P sych ROS: Constitutional D enies. E yes D enies. E ars/Nose/Mouth/Throat D enies. R espiratory D enies. A llergic/Immunologic D enies.?Cardiovascular D enies. G I D enies. M usculoskeletal D enies. N eurological D enies. * PSYCH ROS2: Elevated mood symptoms D enies. m ood swings D enies. T houghts of self harm D enies. D enies H omicidal thoughts. D ifficulty concentrating A dmits, w ith recent role change at [employer] job. . D enies A nxiety. Denies A uditory/visual hallucinations. D enies D elusions. D enies D epressed mood. D enies D ifficulty sleeping. D enies S uicidal thoughts. * Medical History: * Surgical History: c section 2010 and 2013Tubal ligation * Hospitalization/Major Diagno stic Procedure: h [facility] blood pressure and mental health 09/2017 * Family History: F ather: . M other: alive. S iblings: alive, diagnosed with Schizophrenia, unspecified. 2 son(s) , 2 daughter(s) . . father drug overdose. * Social History: P rimary Social History: L iving Arrangement L iving Arrangement: D ependent Living I s this a supportive environment? Y es Alcohol Use A lcohol Use Frequency: N ever Illicit Substance Usage I llicit Substance Usage: N o Employment Status E mployment Status: U nemployed T obacco Use: T obacco Control (Standard) T obacco use: N onsmoker M iscellaneous: M ethod of learning P referred method of learning: D emonstration k ids ages10, 12 plus 14 year old, 17 [...] Psych inpt: none under care of psychiatrist: lissa only. * Medications: T akingSudafed PE Sinus/Allergy , Notes to Pharmacist: OTCVentolin HFA 90 MCG/ACT Aerosol Solution 2 puffs as needed Inhalation every 6 hrs Albuterol Sulfate HFA 108 (90 Base) MCG/ACT Aerosol Solution INHALE 2 PUFFS BY MOUTH EVERY 6 HOURS NEEDED Fluticasone Propionate 50 MCG/DOSE Suspension 1 spray in each nostril Nasally Once a day Lisinopril 20 MG Tablet TAKE 1 TABLET BY MOUTH EVERY DAY Famotidine 40 MG Tablet TAKE 1 TABLET BY MOUTH EVERY DAY AT BEDTIME Mupirocin 2 % Ointment 1 application to both nostrils Externally Twice a day Mirtazapine 45 MG Tablet 1 tablet at bedtime Orally Once a day Topamax 100 MG Tablet 1 tablet Orally Twice a day cloNIDine HCl 0.2 MG Tablet 2 tablets at bedtime Orally Once a day Taking Sudafed PE Sinus/Allergy , Notes to Pharmacist: OTCTaking Ventolin HFA 90 MCG/ACT Aerosol Solution 2 puffs as needed Inhalation every 6 hrs Taking Albuterol Sulfate HFA 108 (90 Base) MCG/ACT Aerosol Solution INHALE 2 PUFFS BY MOUTH EVERY 6 HOURS NEEDED Taking Fluticasone Propionate 50 MCG/DOSE Suspension 1 spray in each nostril Nasally Once a day Taking Lisinopril 20 MG Tablet TAKE 1 TABLET BY MOUTH EVERY DAY Taking Famotidine 40 MG Tablet TAKE 1 TABLET BY MOUTH EVERY DAY AT BEDTIME Taking Mupirocin 2 % Ointment 1 application to both nostrils Externally Twice a day Taking Mirtazapine 45 MG Tablet 1 tablet at bedtime Orally Once a day Taking Topamax 100 MG Tablet 1 tablet Orally Twice a day Taking cloNIDine HCl 0.2 MG Tablet 2 tablets at bedtime Orally Once a day Not-TakingCarvedilol 12.5 MG Tablet as directed Orally twice a day cloNIDine HCl 0.1 Tablet 1 tablet Orally Once a day Not-Taking Carvedilol 12.5 MG Tablet as directed Orally twice a day Not-Taking cloNIDine HCl 0.1 Tablet 1 tablet Orally Once a day * Allergies: N .K.D.A.no[Allergies Verified] Objective: * Vitals: I nitials: ma, Wt:177.8, Ht: 63, BMI:31.49, BP:138/84, HR:73, Oxygen sat %:92, RR:16, LMP: n/a, Pain scale:0, PHQ9:1. * Examination: C QM Exceptions: Cervical Cancer Screening not performed R chapin P atient declined cervical screening M ental Status Exam: SENSORIUM AND COGNITION A lert , Oriented to Person , Oriented to Place , Oriented to Time , Oriented to Situation. ATTENTION AND CONCENTRATION N o deficits. APPEARANCE A ppears older than stated age, slight facial drooping on left side. No, Appropriate, Neatly dressed and groomed. ATTITUDE AND BEHAVIOR C ooperative , Receptive. MEMORY G rossly intact. AFFECT B road/Full , Congruent with reported mood. MOOD E uthymic. SPEECH QUANTITY A ppropriate. SPEECH QUALITY S pontaneous , Fluent , Appropriate volume, somewhat slurred. THOUGHT PROCESS C oherent and goal directed. THOUGHT CONTENT A ppropriate - WNL , Congruent with affect , No evidence of delusional content , No reports paranoia. SUICIDAL IDEATION D enies suicidal ideation , Denies self-harm activities. HOMICIDAL IDEATION D enies homicidal ideation. HALLUCINATIONS D enies auditory hallucinations , Denies visual hallucinations. INSIGHT , Fair. JUDGMENT , Fair. FUND OF KNOWLEDGE , Fair. ABILITY TO PARTICIPATE IN TREATMENT M oderate. WILLINGNESS TO PARTICIPATE IN TREATMENT M oderate. ? Assessment: * Assessment: 1. D epression - F32.9 (Primary) 2 . P TSD (post-traumatic stress disorder) - F43.10 3 . A mphetamine abuse in remission - F15.11 4 . A DHD (attention deficit hyperactivity disorder) - F90.9 5 . N utritional counseling - Z71.3 Plan: * Treatment: 2. A mphetamine abuse in remission Notes: 7 years sober. 3. A DHD (attention deficit hyperactivity disorder) Refill cloNIDine HCl Tablet, 0.2 MG, 2 tablets at bedtime, Orally, Once a day, 90 days, 180 Tablet, Refills 0; S tart Atomoxetine HCl Capsule, 25 MG, 1 capsule in the morning, Orally, once a day, 7 days, 7 Capsule. * Recommended Wellness and Pre vention Guidelines: * S tatus A lert L ast Done N ext Due A ction Taken N ONCOMPLIANT B reast cancer screening - 0 04/27/2024 - N ONCOMPLIANT C ervical cancer screening - 0 04/27/2024 - N ONCOMPLIANT H IV screening - 0 04/27/2024 - * Procedure Codes: 3 008F BODY MASS INDEX [id number] BODY MASS INDEX [id number] BODY MASS INDEX [id number] BODY MASS INDEX [id number] BODY MASS INDEX [id number] MEDICAL NUTRITION, INDIV, [id number] MEDICAL NUTRITION, INDIV, [id number] MEDICAL NUTRITION, INDIV, [id number] MEDICAL NUTRITION, INDIV, [id number] MEDICAL NUTRITION, INDIV, [id number] TOBACCO NON- [id number] TOBACCO NON-[id number] TOBACCO NON-[id number] TOBACCO NON-[id number] TOBACCO NON-USER * Preventive Medicine: Counseling: C are goal follow-up plan: BMI management provided Y es Above Normal BMI Follow-up L ifestyle education regarding diet * Follow Up: 3 Months * * E AND CONCRETE WASHER Sign off status: Completed true * Provider: HILARIA Frazier- Date: 04/27/2024 Generated for Levon rivera/Lili/Ariana on: 0 06/03/2024 12:33 PM CDT History and Physical Notes * HPI (History of Present Illness) Category Sub-Category Detail Notes Category Not es Interim History Was hospitalized No Emergency room visit No Depression Screening PHQ-9 Little inte rest or pleasure in doing things: Not at all Feeling down, depressed, or hopeless: No t at all Trouble falling or staying asleep, or sl eeping too much: Not at all Feeling tired or having little energy: N ot at all Poor appetite or overeating: Not at all Feeling bad about yourself o r that you are a failure, or have let yourself or your family down: Not at all Trouble concentrating on thi ngs, such as reading the newspaper or watching television: Several days Moving or speaking so slowly that other people could have noticed; or the opposite, being so fidgety or restless that you have been moving around a lot more than usual: Not at all Thoughts that you would be b shaun off or of hurting yourself in some way: Not at all Total Score: 1 Interpretation: Minimal Depression Psych F/U Changes since last visit?: 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 She is having trouble switching gears and feels she is slower than she should be my ADD is all over the place. Ward about Vyvclarie and wonders is this would be good for her. Using clonidine. Now 7 years sober from amphetamine abuse and does not want to use a stimulant. Continues to parent three teens whose fathers are difficult to engage with. Effectiveness of medications: Somewhat e ffective--only using clonidine 0.1 ER at [facility]. Medication Adherence: Reports taking med ications as prescribed Sleep: Appropriate sleep Appetite topamax is helpful f or increased appetite with mirtazepine. Highly attached to mirtazepine Depression (10 = most depressed) 0/10 de nies depression Anxiety (10 = most anxious) denies Anger/Irritability (10 is highest): emilie es any altercations Suicidal ideation: Denies suicidal idea tion. Homicidal ideation: Denies homicidal ida ation. Hallucinations Denies hallucination s Medical concerns or hospitalizations? HT N controlled with meds. Therapy? No Screening [place] Suicide Sev erity Rating Scale (LF) Do you want to initiate with: Screener form 1. Wish to be : Have you wished you were or wished you could go to sleep and not wake up?: No 2. Suicidal Thoughts: Have you actually had any thoughts of killing yourself?: No 6. Suicide Behavior Question: Have you ever done anything,started to do anything, or prepared to end your life?: No Interpretation:: Low Risk Preventative Health and Wellness follow-up . . . . . . . CSSRS Interpretation and Follow Up Plan CSSRS Interpretation and Follow Up Plan CSSRS Screen documented using SF: Yes Risk Disposition from SF: Low - No Follo w Up Plan Required Follow Up Plan: No Follow Up Plan requir ed at this time. Examination Category Sub-Category Detail Notes Category Not es CQM Exceptions Cervical Cancer Screening not performed Reason: Patient declined cervical screening Mental Status Exam SENSORIUM AND COGNITION Alert , Oriented to Person , Oriented to Place , Oriented to Time , Oriented to Situation ATTENTION AND CONCENTRATION No deficits APPEARANCE Appears older than s tated age, slight facial drooping on left side. No, Appropriate, Neatly dressed and groomed ATTITUDE AND BEHAVIOR Cooperative , Rece ptive MEMORY Grossly intact AFFECT Broad/Full , Congrue nt with reported mood MOOD Euthymic SPEECH QUANTITY Appropriate SPEECH QUALITY Spontaneous , Fluent , Appropriate volume, somewhat slurred THOUGHT PROCESS Coherent and goal di rected THOUGHT CONTENT Appropriate - WNL , Congruent with affect , No evidence of delusional content , No reports paranoia SUICIDAL IDEATION Denies suicidal idea tion , Denies self-harm activities HOMICIDAL IDEATION Denies homicidal ida ation HALLUCINATIONS Denies auditory griffin ucinations , Denies visual hallucinations INSIGHT , Fair JUDGMENT , Fair FUND OF KNOWLEDGE , Fair ABILITY TO PARTICIPATE IN TREATMENT Mode rate WILLINGNESS TO PARTICIPATE IN TREATMENT Moderate
--- OUTSIDE RECORDS SUMMARY | 2024-06-03 12:34 | XMS_ITS | Clinical Summary ---
Author Organization [facility] Address [address] [place] [id number] Care Team Providers Care Flame Degreaser Name Role Phone None, Provider MD Primary Care Provider Unavaila ble Allergies No known active allergies Medications carvedilol 12.5 MG tablet Take 12.5 mg by mouth. 07/31/2018 Active topiramate 25 MG tablet Take 50 mg by mouth daily. Active cloNIDine 0.2 MG tablet Take 0.2 mg by mouth 2 (two) times daily. Active famotidine 40 MG tablet Take by mouth 2 (two) times daily. Active furosemide Tab 10 mg (20 mg split tab) Take 10 mg by mouth as needed (SWELLING). Active lisinopril 20 MG tablet Take 20 mg by mouth daily. Active traZODone 150 MG tablet Take 150 mg by mouth nightly at bedtime. Active albuterol sulfate HFA 108 (90 Base) MCG/ACT inhaler Inhale 2 puffs into the lungs every 6 (six) hours as needed for Wheezing. 18 g 03/15/2019 Active Family History Medical History Relation Comments Hypertension Mother Relation Status Comments Father Mother Alive Social History Tobacco Use Types Packs/Day Years Used Date Smoking Tobacco: Former Cigarettes 2018 Smokeless Tobacco: Never Alcohol Use Standard Drinks/Week Comments No 0 (1 standard drink = 0.6 oz pur e alcohol) AUDIT-C Answer Date Recorded Frequency of Alcohol Consumption Never 03/15/2019 Average Number of Drinks Not on file 020 Frequency of Binge Drinking Not on file 02/25 Comments No Sex and Gender Information Value Date Recorded Sex Assigned at Not on file Legal Sex Female 5:00 PM CDT Gender Identity Not on file Sexual Orientation Not on file Last Filed Vital Signs Vital Sign Reading Time Taken Comments Blood Pressure 143/102 03/15/2019 11:07 AM WOODWORK TEACHER Pulse 93 03/15/2019 11:07 AM WOODWORK TEACHER Temperature 36.9 C (98.4 F) 03/15/2019 11:07 AM WOODWORK TEACHER Respiratory Rate 16 03/15/2019 11:07 AM WOODWORK TEACHER Oxygen Saturation 100% 03/15/2019 11:07 AM WOODWORK TEACHER Inhaled Oxygen Concentration - - Weight 66.7 kg (147 lb) 03/15/2019 11:07 AM WOODWORK TEACHER Height 160 cm (5' 3 ) 03/15/2019 11:07 AM WOODWORK TEACHER Body Mass Index 26.04 03/15/2019 11:07 AM WOODWORK TEACHER Plan of Treatment Health Maintenance Due Date Last Done Comments Cervical Cancer Screening Pa p Smear (Age 30 to 64) Every 3 Years 1980 Annual Physical 11/23/1983 Hepatitis C 1998 DTaP, Tdap and Td Vaccines ( 1 - Tdap) 11/23/1999 Hepatitis B Vaccines (1 of 3 - 19+ 3-dose series) 11/23/1999 Cervical Cancer Screening Pa p with HPV Testing (Age 30 to 64) Every 5 Years 2010 Cervical Cancer Screening with HPV 2010 Mammogram Screening 2020 COVID-19 Vaccine (2023-2 5 season) 2023 HPV Vaccines Aged Out No longer eligi ble based on patient's age to complete this topic Meningococcal B Vaccine Aged Out No l onger eligible based on patient's age to complete this topic Meningococcal Vaccine Aged Out No maty krupa eligible based on patient's age to complete this topic Pneumococcal Vaccine: Pediat rics (0 to 5 Years) and At-Risk Patients (6 to 64 Years) Aged Out No longer eligible b ased on patient's age to complete this topic RSV Immunizations Under 20 Months Aged Out No longer eligible based on patient's age to complete this topic Insurance [employer] Care Teams Flame Degreaser Relationship Specialty Start Date End Date None, Provider, PCP - General 03/15/19
--- OUTSIDE RECORDS SUMMARY | 2024-06-03 12:34 | XMS_ITS | CONTINUITY OF CARE DOCUMENT ---
Author Name mary ann reese Address Unknown Organization [facility] Address [address] [place] [address] Phone [phone] Care Team Providers Care Banking And Finance Instructor Name Role Phone Michael CARRANZA, Joe Unavailable [phone] Joe Rodriguez MD Unavailable [phone] BRANDAN FIELD SALES ENGINEER, EMIGDIO Unavailable PROBLEMS Condition Status Date Provider Notes Sleep apnea completed - Pratik Watson MD Cardiomyopathy completed - Pratik Watson MD Essential Hypertension active Joe Rodriguez MD Tobacco abuse, quit active Joe Rodriguez MD Mural thrombus, left ventricle active Pratik Watson MD Congestive heart failure, systolic dysfunction, EF 55% 07/13 active Joe Rodriguez MD Snoring- normal sleep study 07/13 active Joe Rodriguez MD CVA, 3 mobile thrombi in her LV on MARVIN 05/12 -resolved 07/13 active Joe Rodriguez MD 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 active Joe Rodriguez MD ENCOUNTERS Date Type Provider Location Encounter Diag nosis - In-person encounter Office Visit Joe Rodriguez MD [facility] - In-person encounter Office Visit Joe Rodriguez MD [facility] Tobacco abuse, quit - In-person encounter Office Visit Joe Rodriguez MD [facility] Essential HypertensionCongestive heart failure, systolic dysfunction, EF 55% 07/13Snoring- normal sleep study 07/13CVA, 3 mobile thrombi in her LV on MARVIN 05/12 -resolved 07/13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 - In-person encounter Office Visit Joe Rodriguez MD [facility] Congestive heart failure, systolic dysfunction, EF 55% 07/13Snoring- normal sleep study 07/13CVA, 3 mobile thrombi in her LV on MARVIN 05/12 -resolved 07/13 - In-person encounter Office Visit [facility] Sleep apnea - In-person encounter Office Visit [facility] CardiomyopathyCongestive heart failure, systolic dysfunction, EF 55% 07/13 - In-person encounter Office Visit [facility] Mural thrombus, left ventricle - In-person encounter Office Visit [facility] Essential HypertensionTobacco abuse, quit VITAL SIGNS Date Observation Value Provider Body Mass Index (Ratio) 31.88 kg/m2 Wilber Flynn blood pressure, diastolic 99 mm[Hg] To [facility] blood pressure, systolic 144 mm[Hg] [facility] oxygen saturation, oximetry 96 % [facility] respiratory rate E&M 18 /min [facility] pulse rate 64 /min [facility] weight E&M 180 [lb_av] [facility] height E&M 63 [in_i] [facility] temperature site temporal Corrine Tank sley temperature E&M 97.7 [degF] Corrine Tanks carito Body Mass Index (Ratio) 36.91 kg/m2 Donavon Rodriguez MD blood pressure, diastolic 103 mm[Hg] Jermaine Giraldo blood pressure, systolic 153 mm[Hg] Fadumo Giraldo oxygen saturation, oximetry 95 % Lilli Giraldo respiratory rate E&M 18 /min Rehan Giraldo pulse rate 73 /min Lilli digsg weight E&M 208.4 [lb_av] Lilli madridon height E&M 63 [in_i] Lilli diggs Body Mass Index (Ratio) 38.26 kg/m2 Donavon Rodriguez MD blood pressure, diastolic 66 mm[Hg] Maverick ica Ab-Darwin blood pressure, systolic 118 mm[Hg] Lissette isha Arambula blood pressure, resting Yes Darrion ramirez Ralf oxygen saturation, oximetry 97 % Marcia Ab-Darwin pulse rate 68 /min Marcia Sasha Granados weight E&M 216 [lb_av] Marcia Berger- Darwin height E&M 63 [in_i] Marcia Berger- Darwin Body Mass Index (Ratio) 37.55 kg/m2 Donavon Rodriguez MD blood pressure, diastolic 80 mm[Hg] Joseluis wagner Ann blood pressure, systolic 118 mm[Hg] Patrick méndez Ann oxygen saturation, oximetry 95 % [place] respiratory rate E&M 16 /min [place] pulse rate 79 /min Cam Ann weight E&M 212 [lb_av] [place] height E&M 63 [in_i] [place] Ann blood pressure, diastolic 70 mm[Hg] Ma rsha O'Sergio blood pressure, systolic 110 mm[Hg] Fadumo colby O'Sergio pulse rate 75 /min Za O'Sergio oxygen saturation, oximetry 90 % Za O'Sergio respiratory rate E&M 16 /min Za O'Sergio Body Mass Index (Ratio) 29.58 kg/m2 Dalton charles O'Sergio weight E&M 167 [lb_av] Za O'Sergio Body Mass Index (Ratio) 29.93 kg/m2 Efrain raygoza Mariseldmaverick blood pressure, diastolic 82 mm[Hg] Ke rri Linkuenenfelder blood pressure, systolic 122 mm[Hg] Asiya ri Titanfelder pulse rate 81 /min Lakesha Linkkennanfe lder oxygen saturation, oximetry 99 % Lakesha Mariselder respiratory rate E&M 16 /min Lakesha G giuseppe weight E&M 169 [lb_av] Lakesha Gruenenfe lder blood pressure, diastolic, left arm 70 mm [Hg] Za O'Sergio blood pressure, systolic, left arm 130 mm [Hg] Za O'Sergio blood pressure, diastolic, right arm 70 m m[Hg] Za O'Sergio blood pressure, systolic, right arm 122 m m[Hg] Za O'Sergio Body Mass Index (Ratio) 28.87 kg/m2 Dalton charles O'Sergio blood pressure, diastolic 70 mm[Hg] [facility] O'Sergio blood pressure, systolic 130 mm[Hg] [facility] lasha O'Sergio pulse rate 75 /min Za O'Sergio oxygen saturation, oximetry 93 % Za O'Sergio respiratory rate E&M 16 /min Za O'Sergio weight E&M 163 [lb_av] Za O'Sergio height E&M 63 [in_i] Za O'Sergio ALLERGIES No Known Drug Allergies RESULTS Date Observation Value Provider Reference Range Interpretation Location international normalized ratio (INR) 2.4 Za O'Sergio Normal prothrombin time (patient) 28.7 s Za O'Sergio international normalized ratio (INR) 2.3 Za O'Sergio Normal prothrombin time (patient) 28.1 s Za O'Sergio coagulation managed by Rose Mary Ibarra RN international normalized ratio (INR) 2.9 Rose Mary Ibarra RN Normal international normalized ratio (INR) 2.9 Za O'Segrio Normal prothrombin time (patient) 35.4 s Az O'Sergio magnesium, serum 1.9 mg/dL [facility] 1.6 - 2.6 urea nitrogen/creatini ne ratio, serum 27.5 [facility] - Estimated Glomerular Filtration Rate (calc) 87.8 (?) [facility] 59.0 - chloride, serum 100.0 mmol/L [facility] 98.0 - 107.0 potassium, serum 5.1 mmol/L [facility] 3.5 - 5.1 sodium, serum 140.0 mmol/L [facility] 136.0 - 145.0 creatine, serum 0.8 mg/dL [facility] 0.5 - 0.9 carbon dioxide, venous blood 26.0 mmol/L [facility] 22.0 - 29.0 calcium, serum 9.9 mg/dL [facility] 8.6 - 10.2 urea nitrogen, blood 22.0 mg/dL [facility] 6.0 - 20.0 High Glucose Urine 86.0 mg/dL [facility] 74.0 - 99.0 coagulation managed by Rose Mary Ibarra RN international normalized ratio (INR) 1.6 Za O'Sergio Normal prothrombin time (patient) 19.5 s Za O'Sergio international normalized ratio (INR) 3.2 Minoo Hamilton Normal prothrombin time (patient) 38.7 s Minoo Hamilton coagulation managed by Nay Carraqsuillo RN international normalized ratio (INR) 3.0 Za Carrillo Normal prothrombin time (patient) 36.0 s Za Carrillo HISTORY OF MEDICATION USE Medication Status Instructions Dates Provider Indications Com ments clonidine HCl 0.2 mg tablet active TAKE 1 TABLET BY MOUTH TWICE DAILY Cara Dominguez Wellbutrin SR 200 mg tablet sustained-release 12 hr active 1 tablet by mouth once a day Lilli Giraldo furosemide 20 mg tablet active 0.5 tablet by mouth once a day Lilli Giraldo CHANTIX 0.5 MG ORAL TABLET completed one tab daily - Marcia duqeu ASPIRIN EC 325 MG ORAL TABLET DELAYED RELEASE completed TK 1 T PO QAM - Marcia Parker oe #30, 30 days supply, Prescribed by HERMINIO ARAGON , Filled 09/21/2017 VENTOLIN HFA 108 (90 BASE) MCG/ACT INHALATION AEROSOL SOLUTION completed U ONE PUFF PO Q 8 H PRN - Marcia Parker oe #18, 31 days supply, Prescribed by JOSS HANCOCK, Filled 03/31/2018 CLONIDINE HCL 0.1 MG ORAL TABLET completed TK 1 T PO QAM - Marcia Parker oe #30, 30 days supply, Prescribed by JOSS HANCOCK, Filled 04/21/2018 albuterol sulfate 90 mcg/actuation HFA aerosol inhaler active Use 1 puff by mouth every eight hours as needed Lc Martinez MD #18, 16 days supply, Prescribed by JOSS HANCOCK, Filled 05/04/2018 HYDROCHLOROTHIAZIDE 25 MG ORAL TABLET completed TK 1 T PO QD - Britany Webb #30, 30 days supply, Prescribed by JOSS HANCOCK, Filled 05/19/2018 famotidine 40 mg tablet active 1 tablet by mouth once a day Lilli Giraldo #30, 30 days supply, Prescribed by ANH BURTON, Filled 05/19/2018 clonidine HCl 0.2 mg tablet completed Take 1 tablet by mouth twice a day - Chastity Angelica TRAZODONE HCL 100 MG ORAL TABLET completed TK 1 T PO QHS FOR SLEEP / DEPRESSION. DISCONTINUE REMERON - Lilli Giraldo #30, 30 days supply, Prescribed by WHIT JARRELL, Filled 06/23/2018 carvedilol 12.5 mg tablet active Take 1 tablet by mouth twice a day Nicola Davist #60, 30 days supply, Prescribed by JOSS HANCOCK, Filled 05/19/2018 lisinopril 20 mg tablet active 1 tablet by mouth once a day Lilli Giraldo #30, 30 days supply, Prescribed by ANH BURTON, Filled 05/24/2018 SERTRALINE HCL 50 MG ORAL TABLET completed take 1 tab daily - Lilli Giraldo [facility] AMOXICILLIN-POT CLAVULANATE 875-125 MG ORAL TABLET completed One tablet by mouth twice a day. - [place] Ann COUMADIN 5 MG ORAL TABLET completed 1 tab po daily with your evening meal - Camjaquelin Guallpaam POTASSIUM CHLORIDE DAHLIA ER 20 MEQ ORAL TABLET EXTENDED RELEASE completed ONE TAB. DAILY - [place] Ann FLONASE 50 MCG/ACT NASAL SUSPENSION completed as directed - [place] Ann ZYRTEC ALLERGY 10 MG ORAL CAPSULE completed once daily - Za Carrillo COREG 6.25 MG ORAL TABLET completed ONE TAB. TWICE DAILY - [place] Ann LASIX 40 MG ORAL TABLET completed One tablet once a day. - Cam Ann LISINOPRIL 5 MG ORAL TABLET completed ONE TAB. DAILY - [place] Ann COUMADIN 2 MG ORAL TABLET completed HOLD - Za Carrillo SOCIAL HISTORY Date Observation Value Provider social history E&M S moking History: Alyssa prater is a former smoker. Joe Rodriguez MD social history reviewed E&M revi ewed - no changes required Joe Rodriguez MD smoking, year quit 2018 Tonsha Mo ss smoking history, tot al pack/day 5 cig Tonsha Stroud cigarette use yes Tonsha Stroud smoking status Former smoker Tonsha Stroud social history E&M S moking History: Alyssa prater is a former smoker. Joe Rodriguez MD social history reviewed E&M revi ewed - no changes required Joe Rodriguez MD smoking, year quit 2018 Lilli Giraldo smoking history, tot al pack/day 5 cig Lilli Giraldo cigarette use yes Lilli pratt smoking status Former smoker Lilli Nolan smoking, year quit 2018 Marcia littlejohnon-Darwin cigarette use yes Marcia Berger -Darwin smoking status Former smoker Marcia Bobo on-Darwin social history reviewed E&M revi ewed - no changes required Marcia Berger-Darwin social history E&M S moking History: Alyssa prater is a former smoker. Joe Rodriguez MD social history reviewed E&M revi ewed - no changes required Joe Rodriguez MD number of grandchildren Joe Rodriguez MD K illeen Ann alcohol use no [place] Ann smoking history, tot al pack/day 5 cig Cam Ann cigarette use yes [place] Ann smoking status Former smoker Cam Ingr am social history reviewed E&M revi ewed - no changes required Pratik Watson MD social history reviewed E&M revi ewed - no changes required Pratik Watson MD smoking status Former smoker Za schneider social history reviewed E&M revi ewed - no changes required Pratik Watson MD alcohol use no Lakesha Riversnfe lder smoking status Former smoker Lakesha Rivers nfelder social history reviewed E&M revi ewed - no changes required Pratik Watson MD smoking history, tot al pack/day 5 cig Za O'Sergio cigarette use yes Za O'Sergio smoking status Current every day smoker M nicole O'Sergio FUNCTIONAL STATUS Date Observation Value Provider HRA, CV Assess/Plan, Angina (inactive) Management Plan continue current therapy Joe Rodriguez MD HRA, CV Assess/Plan, Angina (inactive) Management Plan continue current therapy Joe Rodriguez MD HRA, CV Assess/Plan, Angina (inactive) Management Plan continue current therapy Joe Rodriguez MD FAMILY HISTORY Family Member Condition Mother Negative FH of Coron michael Artery Disease Father Negative FH of Coron michael Artery Disease INSURANCE PROVIDERS Payer name Policy type / Coverage type [place] [employer] MEDICAID Medicaid [id number] ADVANCE DIRECTIVES Name Date DISCUSSED - NO DECISION MADE TREATMENT PLAN Date Name Performer Cardiology Joe Rodriguez MD Cardiology Joe Rodriguez MD Cardiology Joe Rodriguez MD Cardiology Joe Rodriguez MD Cardiology Joe Rodriguez MD Cardiology: H er updated medication list for this problem includes: Carvedilol 12.5 Mg Oral Tablet (Carvedilol) ..... Tk 1 t po bid Lisinopril 20 Mg Oral Tablet (Lisinopril) ..... One tab. daily Furosemide 20 Mg Oral Tablet (Furosemide) ..... 1/2 tab once daily Joe Rodriguez MD Cardiology Joe Rodriguez MD Cardiology:Quit smoking Joe burris MD Cardiology:Recently restarted her BP meds. B P today: 153/103 P rior BP: 118/66 (08/18/2018) Her updated medication list for this problem includes: Carvedilol 12.5 Mg Oral Tablet (Carvedilol) ..... Tk 1 t po bid Lisinopril 20 Mg Oral Tablet (Lisinopril) ..... One tab. daily Furosemide 20 Mg Oral Tablet (Furosemide) ..... 1/2 tab once daily Clonidine Hcl 0.2 Mg Oral Tablet (Clonidine hcl) ..... One tab. twice daily Joe Rodriguez MD Cardiology Joe Rodriguez MD Cardiology Joe Rodriguez MD Cardiology Joe Rodriguez MD Cardiology Joe Rodriguez MD Cardiology Joe Rodriguez MD Cardiology Joe Rodriguez MD Cardiology Joe Rodriguez MD Cardiology Joe Rodriguez MD Cardiology Joe Rodriguez MD Cardiology,follow up :Ms. Montilla reports she is tolerating and compliant with carvedilol 6.25 mg bid and lisinopril 5 mg once daily. She reports she experiences mild orthostatic dizziness on carvedilol and lisinopril and requests we not increase the doses of the medications. Today I discussed in depth the pathophysiology and treatment of cardiomyopathy. In particular I reminded Ms. Montilla she is at high risk for sudden cardiac and recommended she reconsider wearing the LifeVest external defibrillator. At this time Ms. Montilla continues to decline to wear the external defibrillator. Ms. Montilla has been treated with maximally tolerated doses of carvedilol and lisinopril for > 3 months and at this time I will schedule her for TTE to reassess her LV systolic function. If her EF remains < 35%, I will schedule her for ICD implantation. Pratik Watson MD Cardiology:Ms. Montilla reports she is tolerating and compliant with carvedilol 6.25 mg bid and lisinopril 5 mg once daily. She reports she experiences mild orthostatic dizziness on carvedilol and lisinopril and requests we not increase the doses of the medications. Today I discussed in depth the pathophysiology and treatment of cardiomyopathy. In particular I reminded Ms. Montilla she is at high risk for sudden cardiac and recommended she reconsider wearing the LifeVest external defibrillator. At this time Ms. Montilla continues to decline to wear the external defibrillator. Ms. Montilla will return to clinic in one month, at which time I will schedule her for repeat echocardiogram. If the echocardiogram demonstrates persistent cardiomyopathy, I will schedule her for ICD implantation. Pratik Watson MD Date Name Complete Echo MAGNESIUM BASIC METABOLIC PANE L W/EGFR HISTORY OF PROCEDURES Procedure Date Procedure Name Provider Procedure Notes S tatus EKG Joe Rodriguez MD completed Missael Watson MD comp leted SNOMED-CT: [id number] Current Medications Documented Pratik Watson MD completed Missael Watson MD comp leted EKG Pratik Watson MD comp leted Missael Watson MD comp leted EKG Nurse .Triage completed EKG Pratik Watson MD comp leted EKG Pratik Watson MD comp leted
--- OUTSIDE RECORDS SUMMARY | 2024-06-03 12:35 | XMS_ITS ---
Author Organization [facility] Address [address] [place] [address] Care Team Providers Care Cognos Bi Administrator Name Role Phone Matteo Bartlett Primary Care Provider [phone] Virginia Bynum [phone] REASON FOR VISIT update on Atomoxetine Medications Medication SIG (Take, Route, Fr equency, Duration) Notes Start Date End Date Status Atomoxetine HCl 25 MG 1 capsule in the m orning Orally once a day for 90 days 04/27/2024 Ac tive Social History Sex Assigned At : Social History Observation Description Sex Assigned At Female Encounters Encounter Location Date Provider Diagnosis [facility] [address] [address] 05/01/2024 Virginia Bynum ADHD (attention defi cit hyperactivity disorder) F90.9 Assessments Encounter Date Diagnosis (ICD Code) Assessment Notes Treatment Notes Treatment Clinical Notes Section Notes 05/01/2024 ADHD (attention deficit hyperactivity disorder) (ICD-10 - F90.9) Plan Of Treatment Medication Medication Name Sig Start Date Stop Date Notes Atomoxetine HCl 25 MG 1 capsule in the m orning Orally once a day for 90 days 04/27/2024 Progress Notes * ITZELNancy Mueller LDOB: 1 (43 yo F)Acc No.[id number]:05/01/2024 Patient: Nancy EVERETT :1980 A ge:43 Y S ex:Female Address:[facility], [place], * Refills Refill Atomoxetine HCl Capsule, 25 MG, Orally, 90 Capsule, 1 capsule in the morning, once a day, 90 days Subjective: * Chief Complaints: * u pdate on Atomoxetine * Medical History: * Surgical History: * Hospitalization/Major Diagno stic Procedure: * Medications: Objective: * Vitals: * Physical Examination: Assessment: * Assessment: 1. A DHD (attention deficit hyperactivity disorder) - F90.9 (Primary) Plan: * Treatment: * Procedure Codes: * true * Date: Generated for Levon rivera/Lili/Jabiersmitting on: 0 06/03/2024 12:34 PM CDT
[2024-06-03 12:39] LABS: Basophils Percent Auto 0.9 % (0.2-1.2); Eosinophils Absolute Auto 0.2 K/mm3 (0-0.3); Eosinophils Percent Auto 4.9 % (0-4.4); Hematocrit 41.9 % (37.0-47.0); Hemoglobin 13.2 g/dL (12.0-15.0); Immature Granulocyte Absolute 0.01 K/mm3 (0.00-0.031); Immature Granulocyte Percent A 0.2 % (0-0.5); Lymphocytes Absolute Auto 1.75 K/mm3 (0.9-3.2); Lymphocytes Percent Auto 39.1 % (18.3-44.2); Mean Corpuscular HGB Conc 31.5 g/dl (32-36); Mean Corpuscular Hemoglobin 29.1 pg (26-34); Mean Corpuscular Volume 92.5 fl (80-100); Mean Platelet Volume 10.3 fl (7.4-10.4); Monocytes Absolute Auto 0.4 K/mm3 (0.1-0.6); Monocytes Percent Auto 9.2 % (2.6-8.5); Neutrophils Percent Auto 45.7 % (45.5-73.1); Platelet Count Result 225 k/mm3 (150-375); Red Blood Count 4.53 M/mm3 (4.2-5.4); Red Cell Distribution Width 12.5 % (11.5-14.5); White Blood Count 4.5 K/mm3 (4.5-10.0)
[2024-06-03 12:44] VITALS: O2SAT 100
[2024-06-03 12:44] LABS: Add Urine Microscopic? YES; Appearance Urine Clear (Clear); Bacteria Urine None Seen /hpf; Bilirubin Urine Negative (Negative); Blood Urine Negative (Negative); Color Urine Yellow (Yellow); Glucose Urine UA Negative (Negative); Ketones Urine Negative (Negative); Leukocyte Esterase Ur 2+ LEU/UL (Negative); Nitrate Urine Negative (Negative); Non Pathogenic Casts 0-2; Protein Urine Negative (Negative); RBC Urine 0-2 /hpf (0-2); Specific Grav Ur 1.007 (1.001-1.035); Squamous Epithelial Cell Urine None Seen /hpf (Few); Urobilinogen Urine 0.2 mg/dL (<2.0); pH Urine 5.5 (5.0-9.0)
[2024-06-03 12:52] LABS: Alanine Aminotransferase 20 U/L (6-35); Albumin Level 4.7 g/dL (3.5-5.1); Alkaline Phosphatase 77 U/L (38-126); Anion Gap 13 mmol/L (4-12); Aspartate Amino Transferase 26 U/L (14-36); Bilirubin,Total 0.7 mg/dL (0.2-1.3); Blood Urea Nitrogen 18 mg/dL (7-17); Calcium 9.1 mg/dL (8.4-10.2); Carbon Dioxide 22 mmol/L (22-30); Chloride 105 mmol/L (98-107); Estimated CRCL calculation 60 ml/min; Estimated Glomerular Filt Rate 57; Glucose 119 mg/dL (65-110); Potassium 3.8 mmol/L (3.4-5.0); Sodium 140 mmol/L (137-145)
--- OUTSIDE RECORDS SUMMARY | 2024-06-03 13:13 | XMS_ITS | Clinical Summary ---
Author Organization [facility] [employer] Address [address] [place] [address] Care Team Providers Care Dairy Department Manager Name Role Phone Karin Bird RN Unavailable Unavailable Vera Corrales DO Primary Care Provider [phone] Source Comments [facility] [employer],non-owned Affiliates and Associated Physician Practices is amultiple site organization consisting of ambulatory clinics and hospital sitesin [place], [place], [place] and [place]. This disclosure is being madepursuant to the Care Everywhere program and may not contain all information available regarding this patient. Last updated 17.[facility] [employer] Allergies No known active allergies Medications * [...] 05/29/2017 LV (left ventricular) mural thrombus without GA 05/27/2017 Cerebrovascular accident (CV A) due to [...] 11/11/2012 Overview (11/11/2012): Echocardiogram from admission to [facility] in February shows severe LV dysfunction with [...] after having high blood pressure in the [facility] office. States her insurance wouldn't go [...] HIV-2 ANTIBODY Add on 01/08/2013 3:50 PM REHABILITATION TEACHER from Last 3 Months or Most Recently [...] Kearns MD LAB - CHEMISTRY CLARITZA TERESA [facility] [address] [place] [address] * HEPATITIS SCREEN ACUTE (11/16/2016 10:18 AM CDT) Pathologist [facility] HAV Antibody IgM Non Reactive Non Reactive 11/16/2016 3:03 PM CDT [facility] HBsAg Non Reactive Non Reactive 11/16/2016 3:03 PM CDT [facility] HBc Antibody IgM Non Reactive Non Reactive 11/16/2016 3:03 PM CDT [facility] HCV Antibody Screen Non Reactive Non Reactive 11/16/2016 3:03 PM CDT [facility] HCV S/C Ratio 0.16 0.00 - 0.79 11/16/2016 3:03 PM CDT [facility] Comment: Yezdeo-mm-tuulpa ratio (S/CO) <0.80: Non Reactive Blood BLOOD SPECIMEN / Unknown Venipuncture / Unknown 11/16/2016 10:18 AM CDT 11/16/2016 10:26 AM CDT Narrative [facility] - 11/16/2016 3:03 PM CDT Non Reactive - Antibodies to Hepatitis C virus (HCV) were not detected, result does not exclude early acute HCV infection. Non Reactive - Antibodies to Hepatitis C virus (HCV) were not detected, result does not exclude early acute HCV infection. Cuba Vaca MD LAB - CHEMISTRY CLARITZA TERESA Performing Organization Address City/[facility]/ZIP Co de Phone Number [facility] [address] [place] [address] * HIV-1 HIV-2 ANTIBODY (01/08/2013 3:50 PM REHABILITATION TEACHER) Pathologist [facility] HIV-1/HIV-2 Non Reactive Non Reactive 3 1:56 PM REHABILITATION TEACHER [facility] Blood BLOOD SPECIMEN / Unknown 01/08/2013 3:50 PM REHABILITATION TEACHER 01/09/2013 12:38 PM REHABILITATION TEACHER Lillie Roland MD LAB - CHEMISTRY O RDERABLES [facility] [address] [place] [address] from Last 3 Months or Most Recently [...] 10:13 PM 05/29/2017 10:15 PM Care Teams Dairy Department Manager Relationship Specialty Start Date End Date Vera Corrales DO [address] [place] [address] [place] [address] PCP - General 08/11/18 Karin Bird RN Registered Nurse 11/16/16
--- OUTSIDE RECORDS SUMMARY | 2024-06-03 13:13 | XMS_ITS | CONTINUITY OF CARE DOCUMENT ---
Author Name mary ann reese Address Unknown Organization [facility] Address [address] [place] [address] Phone [phone] Care Team Providers Care Document Design Specialist Name Role Phone Michael CARRANZA, Joe Unavailable Joe Rodriguez MD Unavailable [phone] BRANDAN SYNTHETIC SOIL BLOCKS PULPER, EMIGDIO Unavailable PROBLEMS Condition Status Date Provider [...] In-person encounter Office Visit Joe Rodriguez MD [facility] - In-person encounter Office Visit Joe Rodriguez MD [facility] Tobacco abuse, quit - In-person encounter Office Visit Joe Rodriguez MD [facility] Essential HypertensionCongestive heart failure, systolic dysfunction, EF 55% 07/13Snoring- normal sleep study 07/13CVA, 3 mobile thrombi in her LV on MARVIN 05/12 -resolved 07/13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 - In-person encounter Office Visit Joe Rodriguez MD [facility] Congestive heart failure, systolic dysfunction, EF [...] Flynn blood pressure, diastolic 99 mm[Hg] To [facility] blood pressure, systolic 144 mm[Hg] formerly [facility] oxygen saturation, oximetry 96 % [facility] respiratory rate E&M 18 /min [facility] pulse rate 64 /min [facility] weight E&M 180 [lb_av] [facility] height E&M 63 [in_i] [facility] temperature site temporal Corrine Tank sley temperature E&M 97.7 [degF] Corrine Tanks carito Body Mass Index (Ratio) 36.91 kg/m2 Donavon Rodriguez MD blood pressure, diastolic 103 mm[Hg] Jermaine Giraldo blood pressure, systolic 153 mm[Hg] Fadumo Giraldo oxygen saturation, oximetry 95 % Lilli Giraldo respiratory rate E&M 18 /min Rehan Giraldo pulse rate 73 /min Lilli diggs weight E&M 208.4 [lb_av] Lilli madridon height [...] méndez Ann oxygen saturation, oximetry 95 % Raleigh Ann respiratory rate E&M 16 /min Raleigh Ann pulse rate 79 /min Cam Ann weight E&M 212 [lb_av] Raleigh Ann height E&M 63 [in_i] Raleigh Ann blood pressure, diastolic 70 mm[Hg] Ma [...] charles O'Sergio blood pressure, diastolic 70 mm[Hg] [facility] O'Sergio blood pressure, systolic 130 mm[Hg] [facility] lasha O'Sergio pulse rate 75 /min [...] Normal international normalized ratio (INR) 2.9 Za O'Sergio Normal prothrombin time (patient) 35.4 s Za O'Sergio magnesium, serum 1.9 mg/dL [employer] 1.6 [...] s Minoo Hamilton coagulation managed by Nay Carrasquillo RN international normalized ratio (INR) 3.0 Za [...] TABLET completed one tab daily - Marcia duque ASPIRIN EC 325 MG ORAL TABLET DELAYED [...] tablet by mouth twice a day. - Raleigh Ann COUMADIN 5 MG ORAL TABLET completed 1 tab po daily with your evening meal - Camjaquelin Guallpaam POTASSIUM CHLORIDE DAHLIA ER 20 MEQ ORAL TABLET EXTENDED RELEASE completed ONE TAB. DAILY - Raleigh Ann FLONASE 50 MCG/ACT NASAL SUSPENSION completed as directed - Raleigh Ann ZYRTEC ALLERGY 10 MG ORAL CAPSULE completed once daily - Za Carrillo COREG 6.25 MG ORAL TABLET completed ONE TAB. TWICE DAILY - Raleigh Ann LASIX 40 MG ORAL TABLET completed One tablet once a day. - Cam Ann LISINOPRIL 5 MG ORAL TABLET completed ONE TAB. DAILY - Raleigh Ann COUMADIN 2 MG ORAL TABLET completed [...] MD K illeen Ann alcohol use no Raleigh Ann smoking history, tot al pack/day 5 cig Cam Ann cigarette use yes Raleigh Ann smoking status Former smoker Cam Ingr [...] Payer name Policy type / Coverage type [place] [employer] party ID [employer] MEDICAID Medicaid [id number] ADVANCE DIRECTIVES Name Date DISCUSSED - NO [...] completed Missael Watson MD comp leted SNOMED-CT: [id number] Current Medications Documented Pratik Watson MD completed Missael Watson MD comp leted EKG Pratik Watson MD comp leted Missael Watson MD comp leted EKG Nurse .Triage completed EKG Pratik Watson MD comp leted EKG Pratik Watson MD comp leted
--- OUTSIDE RECORDS SUMMARY | 2024-06-03 13:13 | XMS_ITS | Encounter Summary ---
Author Organization [facility] Address [address] [place] [address] Care Team Providers Care Manager Public Name Role Phone Delroy Chandler MD Primary Care Provider [phone] None, Provider Primary Care Provider Unavaila ble Encounter Details Date Type Department Care Team (Late st Contact Info) Description 12/29/2016 [place] [address] , Generic ConversionMD Social History Tobacco Use [...] on filedocumented in this encounter Care Teams Manager Public Relationship Specialty Start Date End Date Delroy Chandler MD PCP - General 03/08/12 03/14/19 None, ProviderMD PCP - General 03/15/19 documented as of this encounter
--- OUTSIDE RECORDS SUMMARY | 2024-06-03 13:13 | XMS_ITS | Clinical Summary ---
Author Organization [facility] Address [address] [place] [address] Care Team Providers Care Drywall Contractor Name Role Phone None, Provider MD Primary [...] Comments Blood Pressure 143/102 03/15/2019 11:07 AM CONSUMER LOAN SPECIALIST Pulse 93 03/15/2019 11:07 AM CONSUMER LOAN SPECIALIST Temperature 36.9 C (98.4 F) 03/15/2019 11:07 AM CONSUMER LOAN SPECIALIST Respiratory Rate 16 03/15/2019 11:07 AM CONSUMER LOAN SPECIALIST Oxygen Saturation 100% 03/15/2019 11:07 AM CONSUMER LOAN SPECIALIST Inhaled Oxygen Concentration - - Weight 66.7 kg (147 lb) 03/15/2019 11:07 AM CONSUMER LOAN SPECIALIST Height 160 cm (5' 3 ) 03/15/2019 11:07 AM CONSUMER LOAN SPECIALIST Body Mass Index 26.04 03/15/2019 11:07 AM CONSUMER LOAN SPECIALIST Plan of Treatment Health Maintenance Due Date [...] complete this topic Insurance [employer] Care Teams Drywall Contractor Relationship Specialty Start Date End Date None, Provider, PCP - General 03/15/19
[2024-06-03 13:14] LABS: Troponin I < 0.012 ng/mL (0.000-0.034)
[2024-06-03 13:18] LABS: Amphetamine Screen Urine Negative (Negative); Barbiturate Screen Urine Negative (Negative); Benzodiazepines Screen Urine Negative (Negative); Cannabinoid Screen Urine Positive (Negative); Cocaine Screen Urine Negative (Negative); Methadone Screen Urine Negative (Negative); Opiate Screen Urine Negative (Negative); Phencyclidine Screen Urine Negative (Negative)
[2024-06-03 13:19] LABS: Beta HCG Quantitative 6.41 mIU/ML
[2024-06-03 13:23] LABS: Thyroid Stimulating Hormone 0.713 uIU/mL (0.465-4.680)
[2024-06-03 14:00] VITALS: BP 133/85; PULSE 66; RESP 18; O2SAT 99
== END 2024-06-03 14:00 | disposition home or self-care (01) ==
PROVIDERS: Emergency Provider Emergency Medicine; PCP Internal Medicine
DX: O23.41 Unspecified infection of urinary tract in pregnancy, first trimester (principal); N39.0 Urinary tract infection, site not specified; O99.341 Other mental disorders complicating pregnancy, first trimester; F41.9 Anxiety disorder, unspecified; R94.31 Abnormal electrocardiogram [ECG] [EKG]; Z3A.00 Weeks of gestation of pregnancy not specified
CPT/HCPCS: 36415; 71045; 80053; 80307; 81001; 81025; 84443; 84484; 84702; 85025; 87086; 93005; 99284; A9270

== ENCOUNTER 2024-06-08 17:05 | Emergency (ER) | payer BC, SELFPAY ==
[2024-06-08 17:29] VITALS: BP 141/99; PULSE 91; RESP 16; TEMP 36.5; O2SAT 100
--- OUTSIDE RECORDS SUMMARY | 2024-06-08 17:54 | XMS_ITS ---
Author Organization [facility] Address [address] [place] [address] Care Team Providers Care Gypsum Block Setter Name Role Phone Matteo Bartlett Primary Care Provider Virginia Bynum [phone] REASON FOR VISIT ER visit Social History Sex Assigned At : Social History Observation Description Sex Assigned At Female Encounters Encounter Location Date Provider Diagnosis [facility] [address], [place] [address] 06/05/2024 Virginia Bynum Plan Of Treatment Next Appt Details Provider Name:Matteo Bartlett , 06/16/2024 09:00:00 AM, [address] [facility] [facility] , [place], [address], Progress Notes * Nancy MONTILLA LDOB: 1 (43 yo F)Acc No.[id number]:06/05/2024 UNLOCKED PROGRESS NOTE Patient: Nancy EVERETT :1980 A ge:43 Y S ex:Female Address:[facility] [address], [place], [address] * * Date:
--- OUTSIDE RECORDS SUMMARY | 2024-06-08 17:54 | XMS_ITS | Encounter Summary ---
Author Organization [facility] Address [address] [place] [address] Care Team Providers Care Hospice Care Consultant Name Role Phone Delroy Chandler MD Primary Care Provider [phone] None, Provider Primary Care Provider Unavaila ble Encounter Details Date Type Department Care Team (Late st Contact Info) Description 12/29/2016 [place] [address] , Generic ConversionMD Social History Tobacco Use [...] on filedocumented in this encounter Care Teams Hospice Care Consultant Relationship Specialty Start Date End Date Delroy Chandler MD PCP - General 03/08/12 03/14/19 None, ProviderMD PCP - General 03/15/19 documented as of this encounter
--- OUTSIDE RECORDS SUMMARY | 2024-06-08 17:54 | XMS_ITS | Clinical Summary ---
Author Organization [facility] Address [address] [place] [address] Care Team Providers Care Rubber Cutting Machine Tender Name Role Phone Karin Bird RN Unavailable Unavailable Vera Corrales DO Primary Care Provider [phone] Source Comments [facility],non-owned Affiliates and Associated Physician Practices is amultiple site organization consisting of ambulatory clinics and hospital sitesin [place], [place], [place] and [place]. This disclosure is being madepursuant to the Care Everywhere program and may not contain all information available regarding this patient. Last updated 17.[facility] Allergies No known active allergies Medications * This document contains information received from the source organization and may not represent a complete record from that organization. * Be aware that medications may not be up to date on this document. Alwaysverify current medications with the patient. aspirin (ASPIRIN) 81 MG chew tablet Take [...] 05/29/2017 LV (left ventricular) mural thrombus without [place] 05/27/2017 Cerebrovascular accident (CV A) due to [...] 11/11/2012 Overview (11/11/2012): Echocardiogram from admission to [facility] in February shows severe LV dysfunction [...] after having high blood pressure in the [facility] office. States her insurance wouldn't go through so she couldn't see a doctor history of Cervical insuffic iency in , antepartum 12/25/2010 10/20/2012 Overview (12/25/2010): cerclage x2 in G6 and 7 Immunizations Immunization Administration Dates Next Due INFLUENZA VACCINE, QUADR. [...] drink = 0.6 oz pur e alcohol) Comments No Sex and Gender Information Value Date Recorded Sex Assigned at Not on file Legal Sex Female 12:42 PM [employer] Gender Identity Female 10/08/2017 4:05 PM CDT Sexual Orientation Not on file Occupation Industry Job Start Date Job End Date unemployed- disability Not on file Not on file Not o n file Last Filed Vital Signs Vital Sign [...] Due Date Last Done Comments MAMMOGRAM 1980 DTAP/TDAP/TD VACCINES (1 - Tdap) 11/23/1999 HEPATITIS B VACCINE (1 of 3 - 19+ 3-dose series) 11/23/1999 LIPID TESTING 05/06/2022 05/06/2017, 10/27, 09/19/2014, Additional history exists COVID-19 VACCINE (1 - 2023- season) 2023 DEPRESSION SCREENING 02/26/2024 INFLUENZA VACCINE [...] HIV-2 ANTIBODY Add on 01/08/2013 3:50 PM [employer] from Last 3 Months or Most Recently Relevant to Health Maintenance Results * (ABNORMAL) LIPID PROFILE (05/06/2017 4:20 AM CDT) [facility] Cholesterol 76 <200 mg/dL 05/06/2017 5:41 AM CDT [facility] Triglycerides 74 <150 mg/dL 05/06/2017 5:41 AM CDT [facility] HDL Cholesterol 21(L) >40 mg/dL 8 5:41 AM CDT [facility] LDL Calculated 40 <130 mg/dL 05/06/2017 5:41 AM CDT [facility] VLDL Calculated 15 <=30 mg/dL 8 5:41 AM CDT [facility] Chol HDL Ratio 3.6 <4.5 05/06/2017 5:41 AM CDT [facility] LDL/HDL Ratio 1.9 <5.0 05/06/2017 5:41 AM CDT [facility] Blood BLOOD SPECIMEN / Unknown Venipuncture / Unknown 05/06/2017 4:20 AM CDT 05/06/2017 5:02 AM CDT Naveen Kearns MD LAB - CHEMISTRY ORDERABLES F inal Result Performing Organization Address City/[facility]/ZIP Co de Phone Number [facility] [address] [place] [address] * HEPATITIS SCREEN ACUTE (11/16/2016 10:18 AM CDT) [facility] HAV Antibody IgM Non Reactive Non Reactive 11/16/2016 3:03 PM CDT [facility] HBsAg Non Reactive Non Reactive 11/16/2016 3:03 PM CDT [facility] HBc Antibody IgM Non Reactive Non Reactive 11/16/2016 3:03 PM CDT [facility] HCV Antibody Screen Non Reactive Non Reactive 11/16/2016 3:03 PM CDT [facility] HCV S/C Ratio 0.16 0.00 - 0.79 11/16/2016 3:03 PM CDT [facility] Comment: Ppiqln-hy-ouuxei ratio (S/CO) <0.80: Non Reactive Blood BLOOD SPECIMEN / Unknown Venipuncture / Unknown 11/16/2016 10:18 AM CDT 11/16/2016 10:26 AM CDT Narrative [facility] - 11/16/2016 3:03 PM CDT Non Reactive - Antibodies to Hepatitis C virus (HCV) were not detected, result does not exclude early acute HCV infection. Non Reactive - Antibodies to Hepatitis C virus (HCV) were not detected, result does not exclude early acute HCV infection. Cuba Vaca MD LAB - CHEMISTRY ORDERABLES Final Result Performing Organization Address City/[facility]/ZIP Co de Phone Number [facility] [address] [place] [address] * HIV-1 HIV-2 ANTIBODY (01/08/2013 3:50 PM [employer]) HIV-1/HIV-2 Non Reactive Non Reactive 3 1:56 PM [employer] [facility] Blood BLOOD SPECIMEN / Unknown 01/08/2013 3:50 PM [employer] 01/09/2013 12:38 PM [employer] us Lillie Roland MD LAB - CHEMISTRY ORDERABLE S Final Result [facility] [address] [place] [address] from Last 3 Months or Most Recently Relevant to Health Maintenance Insurance MEDICAID LIMITED BENEFIT - [facility] MED[facility]ID [facility] BENEFIT - [place] Advance Directives * Full Code (Latest Code [...] 10:13 PM 05/29/2017 10:15 PM Care Teams Rubber Cutting Machine Tender Relationship Specialty Start Date End Date Vera Corrales DO [facility] [address] [place] [id number] PCP - General 08/11/18 Karin Bird, RN Registered Nurse 11/16/16
--- OUTSIDE RECORDS SUMMARY | 2024-06-08 17:54 | XMS_ITS | CONTINUITY OF CARE DOCUMENT ---
Author Name mary ann reese Address Unknown Organization [facility] Address [address] [place] [address] Phone [phone] Care Team Providers Care Mini Bar Attendant Name Role Phone Michael CARRANZA, Joe Unavailable Joe Rodriguez MD Unavailable [phone] BRANDAN POLYSOMNOGRAPH TECH, EMIGDIO Unavailable [phone] PROBLEMS Condition Status Date Provider Notes Sleep [...] In-person encounter Office Visit Joe Rodriguez MD [facility] - In-person encounter Office Visit Joe Rodriguez MD [facility] Tobacco abuse, quit - In-person encounter Office Visit Joe Rodriguez MD [facility] Essential HypertensionCongestive heart failure, systolic dysfunction, EF 55% 07/13Snoring- normal sleep study 07/13CVA, 3 mobile thrombi in her LV on MARVIN 05/12 -resolved 07/13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 - In-person encounter Office Visit Joe Rodriguez MD [facility] Congestive heart failure, systolic dysfunction, EF [...] Flynn blood pressure, diastolic 99 mm[Hg] To [facility] blood pressure, systolic 144 mm[Hg] [facility] oxygen saturation, oximetry 96 % [facility] respiratory rate E&M 18 /min [facility] pulse rate 64 /min [facility] weight E&M 180 [lb_av] [facility] height E&M 63 [in_i] [facility] temperature site temporal Corrine Tank sley [...] méndez Ann oxygen saturation, oximetry 95 % Cam Ann respiratory rate E&M 16 /min [place] Ann pulse rate 79 /min Cam Ann weight E&M 212 [lb_av] [place] Ann height E&M 63 [in_i] Cam Ann blood pressure, diastolic 70 mm[Hg] Ma [...] O'Sergio Body Mass Index (Ratio) 28.87 kg/m2 [place] charles O'Sergio blood pressure, diastolic 70 mm[Hg] [facility] O'Sergio blood pressure, systolic 130 mm[Hg] [facility] lasha O'Sergio pulse rate 75 /min Za [...] PO Q 8 H PRN - Marcia Parekr oe #18, 31 days supply, Prescribed by [...] tablet by mouth twice a day. - [place] Ann COUMADIN 5 MG ORAL TABLET completed 1 tab po daily with your evening meal - Cullmanjaquelin Guallpaam POTASSIUM CHLORIDE DAHLIA ER 20 MEQ ORAL TABLET EXTENDED RELEASE completed ONE TAB. DAILY - Cam Ann FLONASE 50 MCG/ACT NASAL SUSPENSION completed as directed - [place] Ann ZYRTEC ALLERGY 10 MG ORAL CAPSULE completed once daily - Za Carrillo COREG 6.25 MG ORAL TABLET completed ONE TAB. TWICE DAILY - Cam Ann LASIX 40 MG ORAL TABLET completed One tablet once a day. - [place] Ann LISINOPRIL 5 MG ORAL TABLET completed ONE TAB. DAILY - [place] Ann COUMADIN 2 MG ORAL TABLET completed [...] MD K illeen Ann alcohol use no Cam Ann smoking history, tot al pack/day 5 cig [place] Ann cigarette use yes Cam Ann smoking status Former smoker Cam Ingr [...] Payer name Policy type / Coverage type [place] [employer] party ID [employer] MEDICAID Medicaid [id number] ADVANCE DIRECTIVES Name Date DISCUSSED - NO [...] completed Missael Watson MD comp leted SNOMED-CT: [id number] Current Medications Documented Pratik Watson MD completed Missael Watson MD comp leted EKG Pratik Watson MD comp leted Missael Watson MD comp leted EKG Nurse .Triage completed EKG Pratik Watson MD comp leted EKG Pratik Watson MD comp leted
--- OUTSIDE RECORDS SUMMARY | 2024-06-08 17:54 | XMS_ITS ---
Author Organization [facility] Address [address] [place] [address] Care Team Providers Care Drop Wire Aliner Name Role Phone Matteo Bartlett Primary Care Provider FletcherVirginia [phone] Social History Sex Assigned At : Social History Observation Description Sex Assigned At Female Encounters Encounter Location Date Provider Diagnosis [place] [address] [place] [address] 06/03/2024 Matteo Bartlett Plan Of Treatment Next Appt Details Provider Name:Matteo Bartlett , 06/16/2024 09:00:00 AM, [address] [place], [address], Progress Notes * Nancy MONTILLA LDOB: 1 (43 yo F)Acc No.[id number]:06/03/2024 Patient: Nancy EVERETT Ar[place]io :1980 A ge:43 Y S ex:Female Address:[facility] [place], [address] * true * Date: Generated for Levon rivera/Lili/eTransmitting on: 0 06/08/2024 05:53 PM CDT
--- OUTSIDE RECORDS SUMMARY | 2024-06-08 17:54 | XMS_ITS | Patient Health Record ---
Author Organization On license of [facility] Address [address] [place] [address] Care Team Providers Care Employee Health Rn Name Role Phone Matteo Bartlett Primary Care Provider [phone] [place] Unavailable [phone] Nick Amin Unavailable [phone] Allergies No Known Allergies Results Component Value Reference Range Notes Hemoglobin A1c* Reviewed date:01/28/2024 08:11:32 AM Interpretation: Performing Lab:[email or web address] [place], [address] [facility], Phone - [phone], Director - [facility] Notes/Report: Hemoglobin A1c 5.4 4.8-5.6 % . Prediabetes: 5.7 - 6.4 Diabetes: >6.4 Glycemic control for adults with diabetes: <7.0 CBC With Differential/Platel et* Reviewed date:01/28/2024 08:11:33 AM Interpretation: Performing Lab:[facility], [address] [facility], Phone - [phone], Director - PhDAlbuquerque Indian [facility] Centeri Notes/Report: WBC 5.8 3.4-10.8 x10E3/uL RBC [...] T4* Reviewed date:01/28/2024 08:11:33 AM Interpretation: Performing Lab:[facility] [address], Phone - [phone], Director [facility] Notes/Report: TSH 1.340 0.450-4.500 uIU/mL T4,Free(Direct) 1.07 0.82-1.77 ng/dL Lipid Panel* Reviewed date:01/28/2024 08:11:33 AM Interpretation: Performing Lab:[facility] [address], Phone - [phone], Director - PhDTob[facility] Hospitalberhane Notes/Report: Cholesterol, Total 193 100-199 mg/dL Triglycerides 130 0-149 mg/dL HDL Cholesterol 65 >39 mg/dL VLDL Cholesterol John 23 5-40 mg/dL LDL Chol Calc ([facility]) 105 0-99 mg/dL CMP 14 Comprehensive Metabol ic Panel* Reviewed date:01/28/2024 08:11:33 AM Interpretation: Performing Lab:[facility] [place], [address] [place] [address], Phone - [phone], Director - PhDTobey Hospitalberhanei Notes/Report: Glucose 101 70-99 mg/dL BUN [...] W/U Status Risk Notes Problem Tobacco user (470037519) Nicotine dependence, unspecified, uncomplicated (F17.200) Active confirmed Problem 945560594 Other insomnia (G47.09) Active confirmed Problem 188495039664465 Lumbago with sciatica, right side (M54.41) Active confirmed Problem 054117414 Lumbago with sciatica, left side (M54.42) Active confirmed Problem 47147450 Tobacco dependence (F17.200) Active confirmed Problem Depression (611795843) Depression (F32.9) Active confirmed Problem Posttraumatic stress disorder (35803023) PTSD (post-traumatic stress disorder) (F43.10) Active confirmed Problem 68902111 Anxiety (F41.9) Active confirmed Problem Attention deficit hyperactivity disorder (345939995) ADHD (attention deficit hyperactivity disorder) (F90.9) Active confirmed Problem Asthma (427439249) Asthma (J45.909) Active conf irmed Problem 056916968 Abnormal laboratory test (R89.9) Active confirmed Problem 660281502 Moderate episode of recurrent major depressive disorder (F33.1) 11/29/19 Active confirmed Problem 933653759076215 Obesity (BMI 30.0-34.9) (E66.9) Active confirmed Problem 35445420 Post traumatic stress disorder (PTSD) (F43.10) 11/29/19 Active confirmed Problem 07343555 Essential hypertension (I10) 06/15/19 Active confirmed Problem 103848564 Tension-type headache, not intractable, unspecified chronicity pattern (G44.209) Active confirmed Problem 95372775 Chronic sinusitis, unspecified location (J32.9) Active confirmed Problem Gastroesophageal reflux disease (601525012) GERD without esophagitis (K21.9) Active confirmed Problem Amphetamine abuse in remission (F15.11) Active confirmed Vital Signs Heart Rate 73 /min 04/27/2024 Respiratory Rate 16 /min 04/27/2024 Blood pressure diastolic 84 mm Hg 04/27/2024 Oximetry 92 % 04/27/2024 Height 63 in 04/27/2024 Blood pressure systolic 138 mm Hg 04/27/2024 Weight 177.8 lbs 04/27/2024 BMI 31.49 kg/m2 04/27/2024 Encounters Encounter Location Date Provider Diagnosis [address] [address] 07/02/2023 Virginia Fletcher Depression F32.9 ; PTSD (post-traumatic stress disorder) F43.10 ; Amphetamine abuse in remission F15.11 and ADHD (attention deficit hyperactivity disorder) F90.[address] [address] 10/17/2023 Virginia Fletcher Depression F32.9 ; PTSD (post-traumatic stress disorder) F43.10 ; Amphetamine abuse in remission F15.11 and ADHD (attention deficit hyperactivity disorder) F90.[address] [place] [address] 12/13/2023 Nick Amin Essential hypertension I10 ; GERD without esophagitis K21.9 ; Nasal sore J34.89 ; Screening for metabolic disorder Z13.228 ; Lipid screening Z13.220 ; Obesity (BMI 30.0-34.9) E66.9 ; Nutritional counseling Z71.3 and Nicotine dependence, unspecified, uncomplicated F17.[address] [address] 01/27/2024 Virginia Fletcher Depression F32.9 ; PTSD (post-traumatic stress disorder) F43.10 ; Amphetamine abuse in remission F15.11 ; ADHD (attention deficit hyperactivity disorder) F90.9 ; Nutritional counseling Z71.3 ; Obesity (BMI 30.0-34.9) E66.9 ; Screening for metabolic disorder Z13.228 ; Essential hypertension I10 and Lipid screening Z13.[address] [address] 04/27/2024 Virginia Fenwick Depression F32.9 ; PTSD (post-traumatic stress disorder) F43.10 ; Amphetamine abuse in remission F15.11 ; ADHD (attention deficit hyperactivity disorder) F90.9 and Nutritional counseling Z71.[address] [address] 06/05/2024 Virginia Byunm [address] [place] [address] 06/14/2023 Virginia Garcias [address] [place] [address] 06/18/2023 Virginia Fenwick Depression F32.[address] [place] [address] 07/12/2023 Nick Amin [place] [address] [place] [address] 10/08/2023 Virginia Fenwick Depression F32.[address] [address] 10/21/2023 Nick Amin Depression F32.9 and ADHD (attention deficit hyperactivity disorder) F90.[address] [place] [address] 12/09/2023 Nick Amin [facility] [address] [place] [address] 01/28/2024 [facility] [address] [place] [address] 05/01/2024 [place] Bynum ADHD (attention deficit hyperactivity disorder) F90.[address] [place] [address] 06/03/2024 Matteo Bartlett Assessments Encounter Date Diagnosis (ICD Code) Assessment Notes Treatment Notes Treatment Clinical Notes Section Notes 01/27/2024 Depression (ICD-10 - F32.9) 10/08/2023 Depression (ICD-10 [...] May also contact the 24-hour crisis hotline ([facility]), refer to the closest emergency room or [...] or be administered own oral medication per [facility] Protocols. Provided informed consent with understanding of [...] (post-traumatic stress disorder) (ICD-10 - F43.10) 04/27/2024 Depression (ICD-10 - F32.9) 12/13/2023 Essential hypertension (ICD-10 - I10) 12/13/2023 GERD without esophagitis (ICD-10 - K21.9) 10/21/2023 Depression (ICD-10 - F32.9) 05/01/2024 ADHD (attention deficit hyperactivity disorder) (ICD-10 - F90.9) 10/17/2023 Depression (ICD-10 - F32.9) 06/18/2023 Depression (ICD-10 - F32.9) 10/17/2023 PTSD (post-traumatic stress disorder) (ICD-10 - F43.10) 10/21/2023 ADHD (attention deficit hyperactivity disorder) (ICD-10 - F90.9) 12/13/2023 Nasal sore (ICD-10 - J34.89) 04/27/2024 PTSD (post-traumatic stress disorder) (ICD-10 - F43.10) 07/02/2023 Amphetamine abuse in remission (ICD-10 - F15.11) 01/27/2024 PTSD (post-traumatic stress disorder) (ICD-10 - F43.10) 01/27/2024 Amphetamine abuse in remission (ICD-10 - F15.11) 07/02/2023 ADHD (attention deficit hyperactivity disorder) (ICD-10 - F90.9) 04/27/2024 Amphetamine abuse in remission (ICD-10 - F15.11) 7 years sober. 12/13/2023 Screening for metabolic disorder (ICD-10 - Z13.228) 10/17/2023 Amphetamine abuse in remission (ICD-10 - F15.11) 10/17/2023 ADHD (attention deficit hyperactivity disorder) (ICD-10 - F90.9) 12/13/2023 Lipid screening (ICD-10 - Z13.220) 04/27/2024 ADHD (attention deficit hyperactivity disorder) (ICD-10 - F90.9) 01/27/2024 ADHD (attention deficit hyperactivity disorder) (ICD-10 - F90.9) 01/27/2024 Nutritional counseling (ICD-10 - Z71.3) 04/27/2024 Nutritional counseling (ICD-10 - Z71.3) 12/13/2023 Obesity [...] 05/08/19 19 CMP13 05/07/2018 Lipid Panel* 05/07/2018 Next Appt Details Provider Name:Matteo Bartlett , 06/16/2024 09:00:00 AM, [address] [facility] , [place], [address], Insurance Providers Payer Name Payer Address Payer Phone Subscriber Number Group Number Insured Name Patient Relationship to Insured Coverage Start Date Coverage End Date [employer] [address] [place] [phone] [id number] Nancy Montilla Self - patient is the insured 8 MEDICAID [address] [place] [address] [id number] Nancy Montilla Self - patient is the insured 8 8 [employer] buy tea [address] [place] [address] [id number] Nancy Montilla Self - patient is the insured 0 Medical (General) History Medical History History ICD Code high blood pressure using lisinopril TIA/ PA from stimulant abuse hospitalize d for one month in 2014? CHF post PA/TIA states now resolved asthma/seasonal allergies. Surgical History Surgery Date(Month/Year) csection 2010 and 2013 Tubal ligation Hospitalization History Reason Date(Month/Year) high blood pressure and mental health 2017
--- OUTSIDE RECORDS SUMMARY | 2024-06-08 17:54 | XMS_ITS | Clinical Summary ---
Author Organization [facility] Address [address] [place] [address] Care Team Providers Care General Farm Manager Name Role Phone None, Provider MD Primary [...] Comments Blood Pressure 143/102 03/15/2019 11:07 AM ROOF TECHNICIAN Pulse 93 03/15/2019 11:07 AM ROOF TECHNICIAN Temperature 36.9 C (98.4 F) 03/15/2019 11:07 AM ROOF TECHNICIAN Respiratory Rate 16 03/15/2019 11:07 AM ROOF TECHNICIAN Oxygen Saturation 100% 03/15/2019 11:07 AM ROOF TECHNICIAN Inhaled Oxygen Concentration - - Weight 66.7 kg (147 lb) 03/15/2019 11:07 AM ROOF TECHNICIAN Height 160 cm (5' 3 ) 03/15/2019 11:07 AM ROOF TECHNICIAN Body Mass Index 26.04 03/15/2019 11:07 AM ROOF TECHNICIAN Plan of Treatment Health Maintenance Due Date [...] 5 Years) and At-Risk Patients (6 to 49 Years) Aged Out No longer eligible b ased on patient's age to complete this topic RSV Immunizations Under 20 Months Aged Out No longer eligible based on patient's age to complete this topic Insurance [employer] Care Teams General Farm Manager Relationship Specialty Start Date End Date None, Provider, PCP - General 03/15/19
--- OUTSIDE RECORDS SUMMARY | 2024-06-08 17:54 | XMS_ITS ---
Author Organization [facility] Address [address] [place] [address] Care Team Providers Care Environmental Compliance Officer Name Role Phone Matteo Bartlett Primary Care Provider [place] Bynum [phone] REASON FOR VISIT update on Atomoxetine Medications Medication SIG (Take, Route, Fr equency, Duration) Notes Start Date End Date Status Atomoxetine HCl 25 MG 1 capsule in the m orning Orally once a day for 90 days 04/27/2024 Ac tive Social History Sex Assigned At : Social History Observation Description Sex Assigned At Female Encounters Encounter Location Date Provider Diagnosis [facility] [address] [address] 05/01/2024 Virginia Bynum ADHD (attention defi cit [...] once a day for 90 days 04/27/2024 Next Appt Details Provider Name:Matteo Bartlett , 06/16/2024 09:00:00 AM, [address] [facility] , [place], [address], Progress Notes * Nancy MONTILLA LDOB: 1 (43 yo F)Acc No.[id number]:05/01/2024 Patient: O Nancy AUGUSTIN :1980 A ge:43 Y S ex:Female Address:[address] [place] [address] , [facility] [address] * Refills Refill Atomoxetine HCl Capsule, 25 [...] * true * Date: Generated for Levon rivera/Lili/Ariana on: 0 06/08/2024 05:54 PM CDT
[2024-06-08 18:04] LABS: BEDSIDEPREGUCG Negative (Negative)
[2024-06-08 20:34] VITALS: BP 147/96; PULSE 78; RESP 18; O2SAT 100
[2024-06-08 20:39] VITALS: RESP 18; O2SAT 100
--- NOTE | 2024-06-08 20:40 | ED_ITS ---
HPI - General Adult General Chief complaint: Unspecified Stated complaint: throat pain, CHERY, sob Time Seen by Provider: 06/08/24 20:36 Source: patient Mode of arrival: ambulatory Limitations: no limitations History of Present Illness HPI narrative: This is a 43-year-old female who presents to the ED for chief complaint anxiety onset x1 week. Patient states that she was told a week ago that she had a positive test despite having tubal ligation. She is waiting for appointment with OB next week. States that today she had another episode where she had a hot flash and felt like everything was clenching up. States that she has had multiple episodes like this where she feels very anxious. Denies abdominal pain, nausea, vomiting, syncope. Related Data Home Medications ?Medication ?Instructions ?Recorded ?Confirmed ?Last Taken ?Type Lasix 12/29/18 12/29/18 Unknown History Pepcid AC 12/29/18 Unknown History Wellbutrin 12/29/18 Unknown History clonidine DAILY 12/29/18 Unknown History sertraline 50 mg tablet (Zoloft) 50 mg PO DAILY 12/29/18 12/29/18 Unknown History Allergies Allergy/AdvReac Type Severity Reaction Status Date / Time No Known Allergies Allergy Unknown Verified 06/03/24 10:56 Review of Systems 2 Review of Systems: All systems as dictated in HPI Exam 2 Narrative: GENERAL: Well-appearing, well-nourished, and in no acute distress. HEAD: Normocephalic, atraumatic. EYES: PERRLA and EOMI. ENT: Nares clear, no rhinorrhea or epistaxis. Mucous membranes moist. Oropharynx without tonsillar hypertrophy exudate or other lesions. NECK: Supple. No adenopathy or masses. CHEST: No respiratory distress. Clear to auscultation. No wheezes rales or rhonchi HEART: Regular rate and rhythm. No murmur heard. Normal peripheral pulses. ABDOMEN: Soft, nontender, nondistended, normal active bowel sounds. MSK: Normal range of motion. No edema. SKIN: Warm, dry, no rash. NEURO: Alert and oriented x4. No focal deficits. PSYCH: Normal mood and affect. Course Vital Signs Vital signs: Vital Signs Temperature 97.7 F 06/08/24 17:29 Pulse Rate 91 06/08/24 17:29 Respiratory Rate 16 06/08/24 17:29 Blood Pressure 141/99 H 06/08/24 17:29 Pulse Oximetry 100 06/08/24 17:29 Oxygen Delivery Room Air 06/08/24 17:29 Temperature 97.7 F 06/08/24 17:29 Pulse Rate 69 06/08/24 22:07 Respiratory Rate 18 06/08/24 22:07 Blood Pressure 139/81 06/08/24 22:07 Pulse Oximetry 99 06/08/24 22:07 Oxygen Delivery Room Air 06/08/24 17:29 Medical Decision Making MDM Narrative Medical decision making narrative: This is a 43-year-old female who presents to the ED for chief complaint of anxiety attack. Vitals are normal. Exam remarkable for the above although she is well-appearing otherwise. She is anxious over inconclusive test results. Bedside test is negative today. Beta hCG quant is around 6.18 which is reduced from previous measures last week. This is consistent with negative for . However it is concerning for possible other pathologies or more related to perimenopausal symptoms. Encouraged her to follow-up very closely with OBGYN on this issue. She was given dose of Ativan here for anxiety which was very helpful. Patient will be discharged in stable condition. Supportive measures discussed and return precautions given. Patient is understanding and agreeable with plan for discharge with gynecology follow-up. Vital Signs Vital Signs: Vital Signs Temperature 97.7 F 06/08/24 17:29 Pulse Rate 91 06/08/24 17:29 Respiratory Rate 16 06/08/24 17:29 Blood Pressure 141/99 H 06/08/24 17:29 Pulse Oximetry 100 06/08/24 17:29 Oxygen Delivery Room Air 06/08/24 17:29 Temperature 97.7 F 06/08/24 17:29 Pulse Rate 69 06/08/24 22:07 Respiratory Rate 18 06/08/24 22:07 Blood Pressure 139/81 06/08/24 22:07 Pulse Oximetry 99 06/08/24 22:07 Oxygen Delivery Room Air 06/08/24 17:29 Lab Data 06/08/24 21:16 06/08/24 21:16 Labs: Lab Results 06/08/24 06/08/24 Range/Units 18:03 21:16 WBC 4.7 (4.5-10.0) K/mm3 RBC 4.48 (4.2-5.4) M/mm3 Hgb 12.9 (12.0-15.0) g/dL Hct 41.2 (37.0-47.0) % MCV 92.0 (80-100) fl MCH 28.8 (26-34) pg MCHC 31.3 L (32-36) g/dl RDW 12.3 (11.5-14.5) % Plt Count 236 (150-375) k/mm3 MPV 10.3 (7.4-10.4) fl Immature Gran % (Auto) 0.2 (0-0.5) % Neut % (Auto) 50.4 (45.5-73.1) % Lymph % (Auto) 34.9 (18.3-44.2) % [place] % (Auto) 8.1 (2.6-8.5) % Eos % (Auto) 5.5 H (0-4.4) % Baso % (Auto) 0.9 (0.2-1.2) % Lymph # (Auto) 1.64 (0.9-3.2) K/mm3 [place] # (Auto) 0.4 (0.1-0.6) K/mm3 Eos # (Auto) 0.3 (0-0.3) K/mm3 Baso # (Auto) 0.0 (0.0-0.1) K/mm3 Abs Immat Gran (auto) 0.01 (0.00-0.031) K/mm3 Absolute Neuts (auto) 2.4 (1.3-6.7) K/mm3 Absolute Nucleated RBC 0.000 (0.0-0.012) K/mm3 Nucleated RBC % 0.0 (0.0-0.2) % Sodium 142 (137-145) mmol/L Potassium 4.1 (3.4-5.0) mmol/L Chloride 107 (98-107) mmol/L Carbon Dioxide 25 (22-30) mmol/L Anion Gap 10 (4-12) mmol/L BUN 17 (7-17) mg/dL Creatinine 0.90 (0.7-1.0) mg/dL Estim Creat Clear Calc 69 ml/min Estimated GFR > 60 (59 - ) Glucose 116 H (65-110) mg/dL Calcium 9.0 (8.4-10.2) mg/dL Beta HCG, Quant 6.18 mIU/ML POC Urine HCG, Qual Negative (Negative) Discharge Plan Discharge Clinical Impression: Elevated serum hCG Patient Disposition: Home Condition: Stable Instructions: Antibiotic Form Additional Instructions: Your exam today shows test is negative. Please follow-up with gynecology as soon as possible regarding elevated hCG If you have any new or worsening symptoms please return to the ER for further evaluation. Patient Language: Djiboutian Prescriptions: No Action Wellbutrin 300 MG tablet Pepcid AC Lasix 10 MG tablet clonidine 0.1 MG tablet DAILY sertraline [Zoloft] 50 mg Tablet 50 mg PO DAILY prednisone 50 mg tablet 50 mg PO DAILY Qty: 5 0RF fluticasone propionate 50 mcg/actuation spray,suspension 2 spray NASAL DAILY PRN (Reason: nasal congestion) Qty: 15.8 0RF Rx Instructions: administer into each nostril amoxicillin 875 mg tablet 875 mg PO Q12H Qty: 20 0RF amoxicillin-pot clavulanate 875-125 mg tablet 1 tablet PO Q12H Qty: 10 0RF ondansetron 4 mg tablet,disintegrating 4 mg PO Q8H PRN (Reason: nausea and vomiting) Qty: 10 0RF Follow-up/Referrals: Matteo Bartlett MD [Primary Care Provider] - Time of Disposition: 21:55
--- OUTSIDE RECORDS SUMMARY | 2024-06-08 20:44 | XMS_ITS | Clinical Summary ---
Author Organization [facility] Address [address] [place] [address] Care Team Providers Care Hammersmith Helper Name Role Phone None, Provider MD Primary [...] Comments Blood Pressure 143/102 03/15/2019 11:07 AM CUSTOMER MARKETING ASSISTANT Pulse 93 03/15/2019 11:07 AM CUSTOMER MARKETING ASSISTANT Temperature 36.9 C (98.4 F) 03/15/2019 11:07 AM CUSTOMER MARKETING ASSISTANT Respiratory Rate 16 03/15/2019 11:07 AM CUSTOMER MARKETING ASSISTANT Oxygen Saturation 100% 03/15/2019 11:07 AM CUSTOMER MARKETING ASSISTANT Inhaled Oxygen Concentration - - Weight 66.7 kg (147 lb) 03/15/2019 11:07 AM CUSTOMER MARKETING ASSISTANT Height 160 cm (5' 3 ) 03/15/2019 11:07 AM CUSTOMER MARKETING ASSISTANT Body Mass Index 26.04 03/15/2019 11:07 AM CUSTOMER MARKETING ASSISTANT Plan of Treatment Health Maintenance Due Date [...] complete this topic Insurance [employer] Care Teams Hammersmith Helper Relationship Specialty Start Date End Date None, Provider, PCP - General 03/15/19
--- OUTSIDE RECORDS SUMMARY | 2024-06-08 20:45 | XMS_ITS | Encounter Summary ---
Author Organization [facility] Address [address] [place] [address] Care Team Providers Care Medical Billing Coder Name Role Phone Delroy Chandler MD Primary Care Provider None, Provider Primary Care Provider Unavaila ble Encounter Details Date Type Department Care Team (Late st Contact Info) Description 12/29/2016 Abstract [place] [address] , Generic ConversionMD Social History Tobacco Use [...] on filedocumented in this encounter Care Teams Medical Billing Coder Relationship Specialty Start Date End Date Delroy Chandler MD PCP - General 03/08/12 03/14/19 None, ProviderMD PCP - General 03/15/19 documented as of this encounter
--- OUTSIDE RECORDS SUMMARY | 2024-06-08 20:45 | XMS_ITS | Clinical Summary ---
Author Organization [facility] Address [address] [place] [address] Care Team Providers Care Director Data Processing Name Role Phone Karin Bird RN Unavailable Unavailable Vera Corrales DO Primary Care Provider [phone] Source Comments [facility],non-owned Affiliates and Associated Physician Practices is amultiple site organization consisting of ambulatory clinics and hospital sitesin [place], [place], [place] and [place]. This disclosure is being madepursuant to the Care Everywhere program and may not contain all information available regarding this patient. Last updated 17.[facility] Allergies No known active allergies Medications * [...] 05/29/2017 LV (left ventricular) mural thrombus without LA 05/27/2017 Cerebrovascular accident (CV A) due to [...] 11/11/2012 Overview (11/11/2012): Echocardiogram from admission to [facility] in February shows severe LV dysfunction [...] after having high blood pressure in the [facility] office. States her insurance wouldn't go [...] on file Legal Sex Female 12:42 PM WEB DESIGN INTERN Gender Identity Female 10/08/2017 4:05 PM CDT [...] HIV-2 ANTIBODY Add on 01/08/2013 3:50 PM WEB DESIGN INTERN from Last 3 Months or Most Recently Relevant to Health Maintenance Results * (ABNORMAL) LIPID PROFILE (05/06/2017 4:20 AM CDT) [facility] Cholesterol 76 <200 mg/dL 05/06/2017 5:41 AM CDT [facility] Triglycerides 74 <150 mg/dL 05/06/2017 5:41 AM CDT [facility] HDL Cholesterol 21(L) >40 mg/dL 8 5:41 AM CDT [facility] LDL Calculated 40 <130 mg/dL 05/06/2017 5:41 AM CDT [facility] VLDL Calculated 15 <=30 mg/dL 8 5:41 AM CDT [facility] Chol HDL Ratio 3.6 <4.5 05/06/2017 5:41 AM CDT [facility] LDL/HDL Ratio 1.9 <5.0 05/06/2017 5:41 AM CDT [facility] Blood BLOOD SPECIMEN / Unknown Venipuncture / Unknown 05/06/2017 4:20 AM CDT 05/06/2017 5:02 AM CDT Naveen Kearns MD LAB - CHEMISTRY ORDERABLES F inal Result Performing Organization Address City/[facility]/ZIP Co de Phone Number [facility] [address] [place] [address] * HEPATITIS SCREEN ACUTE (11/16/2016 10:18 AM CDT) [facility] HAV Antibody IgM Non Reactive Non Reactive 11/16/2016 3:03 PM CDT [facility] HBsAg Non Reactive Non Reactive 11/16/2016 3:03 PM CDT [facility] HBc Antibody IgM Non Reactive Non Reactive 11/16/2016 3:03 PM CDT [facility] HCV Antibody Screen Non Reactive Non Reactive 11/16/2016 3:03 PM CDT [facility] HCV S/C Ratio 0.16 0.00 - 0.79 11/16/2016 3:03 PM CDT [facility] Comment: Hqtcrh-vc-lssnnj ratio (S/CO) <0.80: Non Reactive Blood BLOOD SPECIMEN / Unknown Venipuncture / Unknown 11/16/2016 10:18 AM CDT 11/16/2016 10:26 AM CDT Narrative [facility] - 11/16/2016 3:03 PM CDT Non Reactive - Antibodies to Hepatitis C virus (HCV) were not detected, result does not exclude early acute HCV infection. Non Reactive - Antibodies to Hepatitis C virus (HCV) were not detected, result does not exclude early acute HCV infection. Cuba Vaca MD LAB - CHEMISTRY ORDERABLES Final Result Performing Organization Address City/[facility]/ZIP Co de Phone Number [facility] [address] [place] [address] * HIV-1 HIV-2 ANTIBODY (01/08/2013 3:50 PM WEB DESIGN INTERN) HIV-1/HIV-2 Non Reactive Non Reactive 3 1:56 PM WEB DESIGN INTERN [facility] Blood BLOOD SPECIMEN / Unknown 01/08/2013 3:50 PM WEB DESIGN INTERN 01/09/2013 12:38 PM WEB DESIGN INTERN us Lillie Roland MD LAB - CHEMISTRY ORDERABLE S Final Result [facility] [address] [place] [address] from Last 3 Months or Most Recently Relevant to Health Maintenance Insurance MEDICAID LIMITED BENEFIT - [facility] MED[facility] BENEFIT - [facility] Advance [...] 10:13 PM 05/29/2017 10:15 PM Care Teams Director Data Processing Relationship Specialty Start Date End Date Vera Corrales DO [facility] [address] [address] PCP - General 08/11/18 Karin Bird, RN Registered Nurse 11/16/16
--- OUTSIDE RECORDS SUMMARY | 2024-06-08 20:45 | XMS_ITS | CONTINUITY OF CARE DOCUMENT ---
Author Name mary ann reese Address Unknown Organization [facility] Address [address] [place] [address] Phone [phone] Care Team Providers Care Shoemaking Finisher Name Role Phone Michael CARRANZA, Joe Unavailable [phone] Joe Rodriguez MD Unavailable [phone] BRANDAN PROOFER PREPRESS, EMIGDIO Unavailable PROBLEMS Condition Status Date Provider [...] In-person encounter Office Visit Joe Rodriguez MD [facility] - In-person encounter Office Visit Joe Rodriguez MD [facility] Tobacco abuse, quit - In-person encounter Office Visit Joe Rodriguez MD [facility] Essential HypertensionCongestive heart failure, systolic dysfunction, EF 55% 07/13Snoring- normal sleep study 07/13CVA, 3 mobile thrombi in her LV on MARVIN 05/12 -resolved 07/13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 - In-person encounter Office Visit Joe Rodriguez MD [facility] Congestive heart failure, systolic dysfunction, EF [...] Flynn blood pressure, diastolic 99 mm[Hg] To [facility] blood pressure, systolic 144 mm[Hg] [facility] oxygen saturation, oximetry 96 % [facility] respiratory rate E&M 18 /min [facility] pulse rate 64 /min [facility] weight E&M 180 [lb_av] [facility] height E&M 63 [in_i] [facility] temperature site temporal Corrine Tank sley [...] [place] [facility] respiratory rate E&M 16 /min [place] pulse rate 79 /min [facility] weight E&M 212 [lb_av] [place] height E&M 63 [in_i] [place] Ann [...] charles O'Sergio blood pressure, diastolic 70 mm[Hg] [facility] O'Sergio blood pressure, systolic 130 mm[Hg] [facility] lasha O'Sergio pulse rate 75 /min Za [...] tablet by mouth twice a day. - [place] COUMADIN 5 MG ORAL TABLET completed 1 tab po daily with your evening meal - Smyrnajaquelin Guallpaam POTASSIUM CHLORIDE DAHLIA ER 20 MEQ ORAL TABLET EXTENDED RELEASE completed ONE TAB. DAILY - [place] FLONASE 50 MCG/ACT NASAL SUSPENSION completed as directed - [place] ZYRTEC ALLERGY 10 MG ORAL CAPSULE completed once daily - Za Carrillo COREG 6.25 MG ORAL TABLET completed ONE TAB. TWICE DAILY - [place] LASIX 40 MG ORAL TABLET completed One tablet once a day. - [place] LISINOPRIL 5 MG ORAL TABLET completed ONE TAB. DAILY - [place] COUMADIN 2 MG ORAL TABLET completed [...] smoking history, tot al pack/day 5 cig [place] cigarette use yes Cam Ann smoking [...] Payer name Policy type / Coverage type [place] red republican [employer] MEDICA[employer] Medicaid [id number] ADVANCE DIRECTIVES Name Date DISCUSSED - NO [...] MD Cardiology Joe Rodriguez MD Cardiology Joe Rodirguez MD Cardiology Joe Rodriguez MD Cardiology Joe [...] completed Missael Watson MD comp leted SNOMED-CT: [id number] Current Medications Documented Pratik Watson MD completed Missael Watson MD comp leted EKG Pratik Watson MD comp leted Missael Watson MD comp leted EKG Nurse .Triage completed EKG Pratik Watson MD comp leted EKG Pratik Watson MD comp leted
[2024-06-08] MEDS: LORazepam (*CRX) 0.5 MG TABLET PO (21:16)
[2024-06-08 21:22] LABS: Basophils Percent Auto 0.9 % (0.2-1.2); Eosinophils Absolute Auto 0.3 K/mm3 (0-0.3); Eosinophils Percent Auto 5.5 % (0-4.4); Hematocrit 41.2 % (37.0-47.0); Hemoglobin 12.9 g/dL (12.0-15.0); Immature Granulocyte Absolute 0.01 K/mm3 (0.00-0.031); Immature Granulocyte Percent A 0.2 % (0-0.5); Lymphocytes Absolute Auto 1.64 K/mm3 (0.9-3.2); Lymphocytes Percent Auto 34.9 % (18.3-44.2); Mean Corpuscular HGB Conc 31.3 g/dl (32-36); Mean Corpuscular Hemoglobin 28.8 pg (26-34); Mean Platelet Volume 10.3 fl (7.4-10.4); Monocytes Absolute Auto 0.4 K/mm3 (0.1-0.6); Monocytes Percent Auto 8.1 % (2.6-8.5); Neutrophils Absolute Auto 2.4 K/mm3 (1.3-6.7); Neutrophils Percent Auto 50.4 % (45.5-73.1); Platelet Count Result 236 k/mm3 (150-375); Red Blood Count 4.48 M/mm3 (4.2-5.4); Red Cell Distribution Width 12.3 % (11.5-14.5); White Blood Count 4.7 K/mm3 (4.5-10.0)
[2024-06-08 21:31] LABS: Anion Gap 10 mmol/L (4-12); Blood Urea Nitrogen 17 mg/dL (7-17); Carbon Dioxide 25 mmol/L (22-30); Chloride 107 mmol/L (98-107); Estimated CRCL calculation 69 ml/min; Estimated Glomerular Filt Rate > 60; Glucose 116 mg/dL (65-110); Potassium 4.1 mmol/L (3.4-5.0); Sodium 142 mmol/L (137-145)
[2024-06-08 21:48] LABS: Beta HCG Quantitative 6.18 mIU/ML
[2024-06-08 22:07] VITALS: BP 139/81; PULSE 69; RESP 18; O2SAT 99
== END 2024-06-08 22:07 | disposition home or self-care (01) ==
PROVIDERS: Emergency Medicine; Emergency Provider Physician Assistant; PCP Internal Medicine
DX: R89.1 Abnormal level of hormones in specimens from other organs, systems and tissues (principal); F41.9 Anxiety disorder, unspecified; F98.8 Other specified behavioral and emotional disorders with onset usually occurring in childhood and adolescence; Z79.899 Other long term (current) drug therapy
CPT/HCPCS: 36415; 80048; 81025; 84702; 85025; 99283; A9270

== ENCOUNTER 2024-06-18 11:26 | Outpatient (CLI) | payer BC, SELFPAY ==
--- NOTE | ~2024-06-18 | US_ITS ---
Pelvic ultrasound. Clinical History: Positive (chest, reported history of tubal ligation Technique: Realtime transabdominal and transvaginal scanning of the pelvis was performed. Color flow Doppler and Doppler spectral analysis were performed. Findings: The uterus is anteverted, and measures 6.1 x 4.1 x 3.9 cm. The endometrial stripe has a th ickness of 2 mm. No focal mass is identified. No intrauterine gestational sac seen. The right ovary measures 1.2 x 1.5 x 1.6 cm. No significant right ovarian or adnexal mass is seen. The left ovary measures 2.6 x 1.8 x 1.4 cm. No significant left ovarian or adnexal mass is seen. There is no evidence of free fluid in the cul de sac. Impression: No significant abnormality seen. No intrauterine gestational sac seen. No adnexal mass evident. Consi verona early normal , spontaneous , or nonvisualized ectopic . Reviewed, dictated and finalized at [facility]. Impression: No significant abnormality seen. No intrauterine gestational sac seen. No adnex al mass evident. Consider early normal , spontaneous , or nonv isualized ectopic .
== END 2024-06-18 11:27 | disposition home or self-care (01) ==
LOC: MICIMG 11:27
PROVIDERS: PCP Internal Medicine; Visit Provider Internal Medicine
DX: Z32.01 Encounter for pregnancy test, result positive (principal)
CPT/HCPCS: 76830; 76856